=== PATIENT | female | born 1995 | race Caucasian/White ===

== ENCOUNTER 2024-03-30 14:21 | Inpatient (IN) ==
--- OUTSIDE RECORDS SUMMARY | 2024-03-30 14:41 | External Medical Summary | Continuity of Care Document ---
Author Name Unknown Organization [facility] [address] [place] [address] SHANTAL YOUNG [phone] Care Team Providers Care Rodeo Rider Name Role Phone Kandice Cody Primary Care Physician [phone] [facility] [phone] Date(s): 02/25/24 - 02/25/24 [facility] [facility] [address], [address], [address] SHANTAL [id number] [phone] Discharge Disposition: Home or Self Care Attending Physician: MD Earl Karen L Referring Physician: ADDISON Cody Katelyn Allergies, Adverse Reactions, Alerts Substance Criticality Severity Reaction Reaction Severity Status Cats Unable to assess criticality Mild Runny eye - discharging Active Latex Unable to assess criticality Severe irritation and swelling Active Allergy Not found in Search Pears Active Immunizations Given and Recorded Vaccine Date Status Refusal Reason influenza virus vaccine, inactivated 01/03/23 Give n influenza virus vaccine, inactivated 04/04/16 Give n influenza virus vaccine, inactivated 01/28/14 Breezy rded influenza virus vaccine, inactivated 08/26/11 Breezy rded pneumococcal 23-valent vaccine 08/05/20 Given pneumococcal 13-valent vaccine 02/18/20 Given human papillomavirus vaccine 1 11/20/17 Given human papillomavirus vaccine 01/28/14 Recorded human papillomavirus vaccine 08/26/11 Recorded human papillomavirus vaccine 12/22/08 Recorded tetanus toxoids-diphtheria, Td (Adult) 02/17/15 Gi terry meningococcal conjugate vaccine 08/26/11 Recorded varicella virus vaccine 12/22/08 Recorded varicella virus vaccine 12/13/02 Recorded tetanus/diphtheria/pertuss, acel (Tdap) 12/22/08 R ecorded hepatitis A pediatric vaccine 12/22/08 Recorded measles/mumps/rubella virus vaccine 07/04/02 Recor ded measles/mumps/rubella virus vaccine 01/21/98 Recor ded diphtheria/tetanus/pertuss, acel (DTaP) 06/16/02 R ecorded diphtheria/tetanus/pertuss, acel (DTaP) 06/18/97 R ecorded diphtheria/tetanus/pertuss, acel (DTaP) 96 R ecorded diphtheria/tetanus/pertuss, acel (DTaP) 96 R ecorded poliovirus vaccine, inactivated 06/16/02 Recorded poliovirus vaccine, inactivated 06/18/97 Recorded poliovirus vaccine, inactivated 96 Recorded poliovirus vaccine, inactivated 96 Recorded hepatitis B pediatric vaccine 06/29/97 Recorded hepatitis B pediatric vaccine 96 Recorded hepatitis B pediatric vaccine 96 Recorded haemophilus b conj (PRP-OMP) vaccine 06/18/97 Breezy rded haemophilus b conj (PRP-OMP) vaccine 96 Breezy rded haemophilus b conj (PRP-OMP) vaccine 96 Breezy rded 1Early/Late Reason: Accommodate D/C Medications azaTHIOprine 50 mg oral tablet Start: 09/06/23 6:28:00 PM EDT, 2 tab, PO, After dinner, Disp# 180 tab, Refills: 3, Pharmacy: [facility] Start Date: 09/06/23 Stop Date: 08/31/24 Status: Ordered cholecalciferol 1250 mcg (50,000 intl units) oral capsule Start: 02/25/24 2:56:00 PM EST, 1 cap, PO, q7days, Disp# 13 cap, Refills: 0, Pharmacy: [facility]/pharmacy#[id number] Start Date: 02/25/24 Stop Date: 05/25/24 Status: Ordered High Potency Vitamin D3 125 mcg (5000 intl units) oral capsule Start: 03/27/23 1:13:00 PM EST Start Date: 03/27/23 Status: Ordered LORazepam 1 mg oral tablet Start: 02/25/24 2:36:00 PM EST, 1 tab, PO, tid, PRN: as needed for anxiety Start Date: 02/25/24 Status: Ordered Medical Marijuana Start: 02/22/24 1:34:00 PM EST Start Date: 02/22/24 Status: Ordered multivitamin Start: 08/02/20 1:49:00 PM EDT, 1 tab, PO, Daily Start Date: 08/02/20 Status: Ordered omeprazole 20 mg oral delayed release capsule Start: 02/01/24 8:48:00 AM EDT, 1 cap, PO, Daily, Disp# 7 cap, Refills: 5, Pharmacy: [facility]/pharmacy #[id number] Start Date: 02/01/24 Stop Date: 03/14/24 Status: Ordered Renflexis 100 mg intravenous injection Start: 02/25/24 2:36:00 PM EST Start Date: 02/25/24 Status: Ordered sertraline 100 mg oral tablet Start: 08/08/23 10:37:00 AM EDT, 1 tab, PO, Daily, Disp# 30 tab, Note to Pharmacy: Total of 150 mg in a day, Pharmacy: [facility]/pharmacy #[id number] Start Date: 08/08/23 Stop Date: 09/07/23 Status: Ordered sertraline 50 mg oral tablet Start: 02/25/24 2:35:00 PM EST, 1 tab, PO, Daily Start Date: 02/25/24 Status: Ordered Problem List Condition Confirmation Course Effective Dates Status Health Status Informant Autoimmune hepatitis treated with steroids Confirmed Active Costochondritis Confirmed Active Crohn's ileocolitis Confirmed Active Elevated liver enzymes Confirmed Active pear allergy 1 Confirmed Active Generalized anxiety disorder with panic attacks Confirmed Active History of eating disorder Confirmed Active Macromastia Confirmed Active Laryngopharyngeal reflux Confirmed Active Vitamin D deficiency Confirmed Active 1PEARS Procedures Procedure Date Related Diagnosis Body Site Status Colonoscopy 1, 2, 3 01/10/24 Compl eted DILATION AND CURETTAGE 4 04/14/23 Completed Biopsy of liver 5 05/28/20 Complet ed Cholecystectomy 6 05/28/20 Complet ed Colonoscopy 02/06/20 Completed Upper GI endoscopy 02/06/20 Comple joanna Reduction mammoplasty 09/23/14 Com pleted 1- The examined portion of the ileum was normal. - Aphtha at the ileocecal valve. - Erythematous and granular mucosa in the cecum. Biopsied. - The rectum, sigmoid colon, descending colon, splenic flexure, transverse colon, hepatic flexure, ascending colon and recto-sigmoid colon are normal. 2Followup with referring doctor as needed 3Colon, cecum, biopsy: Chronic and active colitis. COMMENT: The specimen contains small fragments of colonic mucosa showing inflammatory and architectural change typically seen in primary idiopathic inflammatory bowel disease. No granulomas or dysplasia identified. The epithelium does show cytologic atypia which is interpreted as repair. 4with evacuation 5Robotic cholecystectomy and liver biopsy. 6Robotic cholecystectomy and liver biopsy. Social History Social History Type Response Tobacco Former smoker Smoking Status Never smoked cigaret radha Sex Female Sex Representation Female (finding) Patient Care team information Care Team Personnel Name: ADDISON Cody Katelyn Position: Nurse Pract - Family Med Member Role: Primary Care Provider Address: [address] [place] [id number] [place] Name: Alicia Carter Kimberly Position: Pharmacist BCMA Member Role: Pharmacy - Lifetime Address: [address] [address] [place] Name: Alicia Maria Matthew Position: Pharmacist Member Role: Pharmacy - Lifetime Care Team Related Persons Name: LEYDA OROZCO Name: ELENA DEVI
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
[2024-03-30 15:02] LABS: Basophils # (auto) 0.04 K/uL (0.00-0.20); Basophils % (auto) 0.6 %; Eosinophils % (auto) 1.5 %; Hematocrit (blood only) 43.8 % (37.0-47.0); Hemoglobin 14.8 g/dl (12.0-16.0); Immature Granulocytes # (auto) 0.01 K/uL (0.01-0.20); Immature Granulocytes % (auto) 0.2 %; Lymphocytes # (auto) 2.09 K/uL (1.20-3.40); Lymphocytes % (auto) 32.4 %; Mean Corpuscular Hgb Conc 33.8 g/dL (32.0-36.0); Mean Corpuscular Volume 91.8 fL (80.0-100.0); Monocytes # (auto) 0.92 K/uL (0.11-0.59); Monocytes % (auto) 14.2 %; Neutrophils % (auto) 51.1 %; Platelet Count 198 K/uL (130-400); RDW Coefficient of Variation 12.1 % (11.5-14.5); RDW Standard Deviation 40.7 fL (36.4-46.3); Red Blood Count 4.77 M/uL (4.20-5.40); White Blood Count 6.46 K/ul (4.8-10.8)
--- NOTE | 2024-03-30 15:05 | Emergency Department Note ---
Impression & Plan Intentional drug overdose, Autoimmune liver disease, Overdose of sertraline, Suicide attempt, Depression ED Provider Note NAME: AMRTA JOHNSON AGE: 28 SEX: F : 1995 ARRIVES VIA: Ambulance INFORMANT: Patient ED PROVIDER(S): Josué Campbell MD CHIEF COMPLAINT: Intentional overdose, suicide attempt, 302 PLAN: Disposition: Admit MEDICAL DECISION MAKING: The patient is a 28-year-old woman with past medical history of anxiety and depression on sertraline, history of Crohn's disease, autoimmune liver disease who presents to emergency department via EMS referred by police with 302 petition pending from the patient's boyfriend for intentional suicide attempt with overdose of her sertraline where she reports taking 50 of her sertraline tablets which she reports are 100 mg. The patient reports she took this all at once at 1350. Patient reports that she has a prior suicide attempt with overdose in July when she was admitted to [place] where she lives. She currently has been in the [facility] living with her boyfriend. Patient particularly for self because she does not like her life. She reports to the provider that she "does not want to be saved". She is tearful. She reports feeling nauseated and short of breath. She denies vomiting. Patient denies any other ingestions. On evaluation the patient is melancholy appearing, tearful, no acute distress, afebrile with heart in the 100s-110s and blood pressure 130/90s with respiratory rate in the mid teens and O2 saturation 100% on room air. Her pupils are 2 mm, appropriate to light and reactive. There is no ocular clonus. There is no extremity clonus. Reflexes within normal limits. EKG demonstrates sinus tachycardia without QRS widening. Case was discussed with Poison Control Center. Appreciate consultation recommendations. Recommendations are for at least 6-8 hours of observation to assess for symptomatic overdose. However given the patient is already experiencing symptoms of withdrawal with nausea will likely require admission for further monitoring for serotonin syndrome. Recommendations are for supportive care with liberal use of benzodiazepines and hydration. Agrees given the patient is having symptoms of nausea that activated charcoal is contraindicated. If symptoms were to become unresponsive to benzodiazepines with worsening symptoms including fever or seizures then cyproheptadine could be considered at that time. WBC, H/H and platelets within normal limits. Chemistry without metabolic acidosis. Electrolytes without significant abnormality. AST and ALT are mildly elevated at 46 and 62, respectively, nonspecific. Bilirubin is normal. Aspirin and salicylate acetaminophen and salicylate levels were undetectable. Medical alcohol is undetectable. COVID-19 RNA, BERTHA test was negative. Upon evaluation patient did appear more comfortable though still with heart rate in the 100s. Pupils appear slightly more dilated at this time without nystagmus or ocular clonus. Reflexes more prominent at this time and bilateral lower extremity to beats of clonus bilaterally. Given onset of symptoms of serotonin syndrome patient was given additional dose of IV Ativan. Repeat EKG is unchanged with normal QRS. Case was discussed with Dr. Linares, [facility] hospitalist, who will evaluate the patient for admission. Further management per admitting team. Triage Nursing notes reviewed and agree them. Prior/external medical records reviewed Vital Signs: reviewed Differential diagnosis: Overdose, toxicologic, infection, hypoglycemia, electrolyte abnormalities, cardiac sources, intracerebral event, neurologic, trauma, as well as other pathologies. ER treatment provided: See below. Diagnostics interpreted by me: ECG: Sinus tachycardia, 116 bpm, no ectopy, no overt ST ovation or depression, QTc 453, QRS 90. Cardiac Monitoring: An order for continuous cardiac monitoring was placed and demonstrated Sinus tachycardia, 116 bpm, no ectopy Laboratory studies: See below Imaging studies: See below Consultation(s): Poison control center Dr. Linares [facility] hospitalist. HPI: The patient is a 28-year-old woman with past medical history of anxiety and depression on sertraline, history of Crohn's disease, autoimmune liver disease who presents to emergency department via EMS referred by police with 302 petition pending from the patient's boyfriend for intentional suicide attempt with overdose of her sertraline where she reports taking 50 of her sertraline tablets which she reports are 100 mg. The patient reports she took this all at once at 1350. Patient reports that she has a prior suicide attempt with overdose in July when she was admitted to [place] where she lives. She currently has been in the [facility] living with her boyfriend. Patient particularly for self because she does not like her life. She reports to the provider that she "does not want to be saved". She is tearful. She reports feeling nauseated and short of breath. She denies vomiting. Patient denies any other ingestions. ROS: See above HPI for pertinent positives & negatives. A total of 10 systems reviewed and were otherwise negative. VITALS:See Below PHYSICAL EXAMINATION: GENERAL: Awake, alert, melancholy-appearing, in no distress HENT: Normocephalic, atraumatic. Oropharynx with dry mucous membranes and otherwise unremarkable. EYES: Normal conjunctiva. Sclera non-icteric. NECK: Supple. No nuchal rigidity. FROM. No JVD. RESPIRATORY: Clear to auscultation. CARDIAC: Tachycardic rate, normal rhythm. Extremities warm and well perfused. Pulses equal. ABDOMEN: Soft, non-distended. No tenderness to palpation. No rebound or guarding. No masses. MUSCULOSKELETAL: Chest examination reveals no tenderness. The back is symmetrical on inspection without obvious abnormality. There is no CVA tenderness to palpation. No joint edema. LOWER EXTREMITIES: Calves are equal size bilaterally and non-tender. No edema. No discoloration. NEURO: Normal sensorium. No sensory or motor deficits noted. SKIN: No rash or jaundice noted. PSYCH: Reports depression, suicide attempt persistent suicidal ideation. ED COURSE: Critical Care: I have personally spent greater than 35 minutes of critical care time in the direct management of this patient. This includes bedside care, interpretation of diagnostic studies, and testing, discussion with consultants, patient, and family members, and other required patient management activities. This 35 minutes is in excess of all separately billable procedures. Jousé Campbell MD Past Med/Surg History Problem List (Updated 03/31/24 @ 03:28 by Josué Campbell MD) Intentional SSRI (selective serotonin reuptake inhibitor) overdose Depression (Acute) Suicide attempt (Acute) Crohn's disease Autoimmune liver disease (Acute) Suicidal overdose Overdose of sertraline (Acute) Intentional drug overdose (Acute) Medical History History of Crohn's disease Social History Smoking Status: Never smoker Hx Alcohol Use: No Hx Substance Use: Yes Last Used Substance Other:: weeks ago Preferred Language: Togolese Communication Ability: Effective Angle Furnaceman Required: No Beliefs That Will Affect Care: None Current Living Situation: Significant Other Feels Safe at Home: Yes Assistive Devices: None Allergies Allergies Allergy/AdvReac Type Severity Reaction Status Date / Time latex Allergy Rash Verified 12/15/24 17:07 Home Meds Home Medications Medication Instructions Recorded Confirmed azathioprine 50 mg tablet 100 mg PO HS liver disease 02/13/24 03/30/24 infliximab-abda 100 mg intravenous 100 mg IV .EVERY 6 WEEKS crohns 02/13/24 03/30/24 solution (Renflexis) sertraline 100 mg tablet 100 mg PO QAM anxiety 02/13/24 03/30/24 cholecalciferol (vitamin D3) 1,250 1,250 mcg PO WK 03/30/24 03/30/24 mcg (50,000 unit) capsule sertraline 50 mg tablet 50 mg PO QAM 03/30/24 03/30/24 Results & Data (ED) Vital Signs Vital Signs - 24 hr 03/30/24 14:25 03/30/24 14:25 03/30/24 14:43 Temperature 36.7 C Temperature Source Oral Pulse Rate 100 H 112 H Pulse Rate [Right Finger] Pulse Rhythm [Right Finger] Pulse Strength [Right Finger] Respiratory Rate 16 Respiratory Effort / Characteristics Non-Labored Spontaneous Respiratory Depth Normal Respiratory Pattern Regular Blood Pressure 133/97 Blood Pressure [Right Arm] Blood Pressure Mean 109 Blood Pressure Mean [Right Arm] Blood Pressure Position [Right Arm] Pulse Oximetry 100 100 Oxygen Delivery Method Room Air Room Air Oxygen Flow Rate 0 Sepsis Recent Fever Within 48 Hours No Sepsis New/Unexplained Change in Mental Status N/A Sepsis Action Taken by Nursing No Action Required 03/30/24 15:28 03/30/24 17:00 Temperature Temperature Source Pulse Rate Pulse Rate [Right Finger] 96 H 103 H Pulse Rhythm [Right Finger] Regular Regular Pulse Strength [Right Finger] Normal Normal Respiratory Rate 16 17 Respiratory Effort / Characteristics Non-Labored Non-Labored Respiratory Depth Normal Normal Respiratory Pattern Regular Regular Blood Pressure Blood Pressure [Right Arm] 121/79 117/77 Blood Pressure Mean Blood Pressure Mean [Right Arm] 93 90 Blood Pressure Position [Right Arm] Lying Lying Pulse Oximetry 99 96 Oxygen Delivery Method Room Air Room Air Oxygen Flow Rate Sepsis Recent Fever Within 48 Hours Sepsis New/Unexplained Change in Mental Status Sepsis Action Taken by Nursing Laboratory Data Attestation: I reviewed the patient's lab results. 03/30/24 14:38 03/31/24 00:39 Lab Results 03/30/24 03/30/24 Range/Units 14:38 14:46 WBC 6.46 (4.8-10.8) K/ul RBC 4.77 (4.20-5.40) M/uL Hgb 14.8 (12.0-16.0) g/dl Hct 43.8 (37.0-47.0) % MCV 91.8 (80.0-100.0) fL MCH 31.0 (25.0-34.0) pg MCHC 33.8 (32.0-36.0) g/dL RDW Std Deviation 40.7 (36.4-46.3) fL RDW Coeff of Gema 12.1 (11.5-14.5) % Plt Count 198 (130-400) K/uL MPV 11.0 (9.4-12.4) fL Immature Gran % (Auto) 0.2 % Neut % (Auto) 51.1 % Lymph % (Auto) 32.4 % [place] % (Auto) 14.2 % Eos % (Auto) 1.5 % Baso % (Auto) 0.6 % Neut # (Auto) 3.30 (1.40-6.50) K/uL Lymph # (Auto) 2.09 (1.20-3.40) K/uL [place] # (Auto) 0.92 H (0.11-0.59) K/uL Eos # (Auto) 0.10 (0.00-0.50) K/uL Baso # (Auto) 0.04 (0.00-0.20) K/uL Immature Gran # (Auto) 0.01 (0.01-0.20) K/uL Sodium 135 L (136-145) mmol/L Potassium TNP Chloride 104 (98-107) mmol/L Carbon Dioxide 24 (21-32) mmol/L Anion Gap 7 (3-11) BUN 7 (6-23) mg/dl Creatinine 0.58 L (0.6-1.2) mg/dl Est Cr Clr Drug Dosing 136.4 ml/min eGFR 127.12 BUN/Creatinine Ratio 12.1 (10-20) Glucose 80 (70-99(Fasting)) mg/dl Calcium 9.7 (8.6-10.3) mg/dl Phosphorus 2.7 (2.5-4.9) mg/dl Magnesium 2.1 (1.7-2.4) mg/dl Total Bilirubin 0.6 (0.2-1.0) mg/dl AST TNP ALT 62 H (7-52) U/L Alkaline Phosphatase 166 H (34-104) U/L Total Protein 8.5 H (6.0-8.3) gm/dl Albumin 4.6 (3.4-5.0) gm/dl Globulin 3.9 (2.5-4.0) gm/dl Albumin/Globulin Ratio 1.2 (0.9-2) TSH 3.144 (0.300-4.500) uIu/ml HCG, Qual Negative (Negative) Salicylates < 3.0 L (3.0-30) mg/dl Acetaminophen < 3 L (10-30) ug/ml Ethyl Alcohol mg/dL < 10.0 (<10.0) mg/dl SARS-CoV-2, RNA, NAAT NEGATIVE (NEGATIVE) Administered Medications Parenteral Electrolytes (Plasma-Lyte A Ph 7.4) 1,000 mls @ 125 mls/hr IV .Q8H SHLOMO Stop: 03/31/24 20:44 Last Admin: 03/30/24 20:51 Dose: 125 mls/hr Documented By: [id number] Lorazepam (Lorazepam 2 Mg/1 Ml Vial) 1 mg IV Q2H PRN PRN Reason: Anxiety/Agitation Stop: 04/29/24 23:58 Last Admin: 03/31/24 02:08 Dose: 1 mg Documented By: [id number] Admin: 03/31/24 00:16 Dose: 1 mg Documented By: [id number] Miscellaneous (Icu Protocol For Hyperglycemia) 1 each N/A ACHS [facility] Stop: 04/01/24 20:59 Last Admin: 03/30/24 21:00 Dose: Not Given Documented By: [id number] Discontinued Medications Sodium Chloride (Nss) 1,000 mls @ 999 mls/hr IV .Q1H1M ONE Stop: 03/30/24 15:36 Last Infusion: 03/30/24 16:08 Dose: Infused Documented By: [email or web address] Admin: 03/30/24 15:06 Dose: 999 mls/hr Documented By: [id number] Sodium Chloride (Nss) 1,000 mls @ 125 mls/hr IV .Q8H SHLOMO Stop: 03/31/24 17:44 Last Infusion: 03/30/24 20:52 Dose: Infused Documented By: [id number] Admin: 03/30/24 17:55 Dose: 125 mls/hr Documented By: SHJustina Potassium Chloride (K [place] / Wtr) 10 meq in 100 mls @ 100 mls/hr IV Q1H SHLOMO Stop: 03/31/24 01:29 Last Infusion: 03/31/24 02:00 Dose: Infused Documented By: [id number] Admin: 03/31/24 01:00 Dose: 100 mls/hr Documented By: [id number] Infusion: 03/31/24 01:00 Dose: Infused Documented By: [id number] Admin: 03/31/24 00:03 Dose: 100 mls/hr Documented By: [id number] Magnesium Sulfate/Dextrose (Magnesium Sulfate / D5w) 1 gm in 100 mls @ 50 mls/hr IV ONE ONE Stop: 03/31/24 01:20 Last Infusion: 03/31/24 02:03 Dose: Infused Documented By: [id number] Admin: 03/31/24 00:02 Dose: 50 mls/hr Documented By: [id number] Lorazepam (Lorazepam 1 Mg/1 Ml Syr Ed Inj Use) 1 mg IV ONE STA Stop: 03/30/24 15:23 Last Admin: 03/30/24 15:31 Dose: 1 mg Documented By: ANNIE Lorazepam (Lorazepam 1 Mg/1 Ml Syr Ed Inj Use) 1 mg IV ONE STA Stop: 03/30/24 17:02 Last Admin: 03/30/24 17:24 Dose: 1 mg Documented By: ANNIE Ondansetron HCl (Ondansetron Inj 2 Mg/Ml 2 Ml Vial) 4 mg IV NOW STA Stop: 03/30/24 15:23 Last Admin: 03/30/24 15:31 Dose: 4 mg Documented By: ANNIE Potassium Chloride (Potassium Chloride 20 Meq/15 Ml Udc) 40 meq PO NOW STA Stop: 03/30/24 23:22 Last Admin: 03/31/24 00:02 Dose: 40 meq Documented By: [id number] Discharge Plan Visit Data Chief Complaint: Overdose (Intentional) ED Provider: Josué Campbell Discharge Problem: Intentional drug overdose, Autoimmune liver disease, Overdose of sertraline, Suicide attempt, Depression Patient Disposition: Admitted As Inpatient Discharge Instructions Interventions: ED Discharge Assessment Last Done: 03/30/24 19:11 Discharge Problem: Intentional drug overdose Qualifiers: Encounter type: initial encounter Qualified Code(s): T50.902A - Poisoning by unspecified drugs, medicaments and biological substances, intentional self-harm, initial encounter Depression Qualifiers: Depression Type: unspecified Qualified Code(s): F32.A - Depression, unspecified
[2024-03-30] MEDS: SODIUM CHLORIDE 0.9% 1,000 ML IV ONE (15:06)
[2024-03-30 15:09] LABS: Pregnancy Test, Serum Negative (Negative)
[2024-03-30 15:13] LABS: Acetaminophen < 3 ug/ml (10-30); Salicylate < 3.0 mg/dl (3.0-30)
[2024-03-30 15:14] LABS: Alanine Aminotransferase 62 U/L (7-52); Albumin Globulin Ratio 1.2 (0.9-2); Albumin Level 4.6 gm/dl (3.4-5.0); Alkaline Phosphatase 166 U/L (34-104); Anion Gap 7 (3-11); BUN Creatinine Ratio 12.1 (10-20); Bilirubin,Total 0.6 mg/dl (0.2-1.0); Blood Urea Nitrogen 7 mg/dl (6-23); Calcium 9.7 mg/dl (8.6-10.3); Carbon Dioxide 24 mmol/L (21-32); Chloride 104 mmol/L (98-107); Creatinine Clr Calc Pharmacy 136.4 ml/min; Globulin 3.9 gm/dl (2.5-4.0); Glucose 80 mg/dl (70-99(Fasting)); Magnesium 2.1 mg/dl (1.7-2.4); Phosphorus 2.7 mg/dl (2.5-4.9); Sodium 135 mmol/L (136-145); Total Protein 8.5 gm/dl (6.0-8.3)
[2024-03-30 15:27] LABS: Thyroid Stimulating Hormone 3.144 uIu/ml (0.300-4.500)
[2024-03-30] MEDS: LORazepam 1 MG/1 ML SYR ED Inj Use IV STA ×2 (15:31→17:24)
[2024-03-30] MEDS: ONDANSETRON INJ 2 MG/ML 2 ML VIAL IV STA (15:31)
[2024-03-30 16:47] LABS: Appearance Urine Cloudy (Clear); Bacteria Urine Automated None Seen (None Seen); Bilirubin Urine Negative (Negative); Blood Urine 3+ (Negative); Cast Urine Automated 0-2 /lpf (0-2); Color Urine Yellow; Epithelial Cell Urine Auto 0-2 /hpf (0-2); Glucose Urine UA Negative (Negative); Ketones Urine Negative (Negative); Leukocyte Esterase Urine Negative (Negative); Nitrite Urine Negative (Negative); Protein Urine Negative (Negative); RBC Urine Automated >20 /hpf (0-2); Specific Gravity Urine 1.019 (1.000-1.030); Urobilinogen Urine Negative (Negative); WBC Urine Automated 0-5 /hpf (0-5)
[2024-03-30 17:04] LABS: Amphetamines+Metham, Urine Neg (Neg); Barbiturates, Urine Neg (Neg); Benzodiazepine, Urine Pos (Neg); Cocaine, Urine Neg (Neg); Fentanyl, Urine Neg (Neg); MDMA (Ecstacy), Urine Neg (Neg); Marijuana, Urine Neg (Neg); Methadone, Urine Neg (Neg); Opiate, Urine Neg (Neg); Phencyclidine, Urine Neg (Neg)
--- NOTE | 2024-03-30 17:47 | History & Physical Report ---
Date of Service March 30, 2024 Assessment & Plan (1) Intentional drug overdose: (2) Overdose of sertraline: (3) Suicidal overdose: (4) Autoimmune liver disease: (5) Crohn's disease: Plan 28-year-old female with past medical history of depression with prior suicide attempt in July 2023 on sertraline, autoimmune liver disease on azathioprine, Crohn's disease on infliximab infusions every 6 weeks follows up at IBD clinic with [facility] was brought in by EMS to ED after being referred by police with a 302 petition from the patient's boyfriend for suicide attempt with sertraline overdose. #Suicide attempt #Intentional drug overdose with sertraline Admit to ICU Telemetry monitoring Professor Computer Science consult: Message sent to Dr. Arvizu via secure chat Close observation for seizures, clonus and encephalopathy Patient has received 2 doses of IV benzodiazepine in ED Dr. Campbell from ED spoke with poison control: Advice was to hold off on activated charcoal as patient was nauseous requiring Zofran and benzodiazepine as needed for clonus and close observation One-to-one observation Psychiatry consult N.p.o. for now IV fluids: Normal saline at 125 mL/h x 24 hours Monitor QTc Check K and magnesium and replace as needed Seizure precautions Monitor LFTs #Autoimmune liver disease #Mild transaminitis #Crohn's disease Patient follows up with GI at [facility] and IBD center at [facility] Hold azathioprine for now Patient is on 6 weekly infusions of infliximab Monitor LFTs CODE STATUS: Full code by default DVT prophylaxis: Bilateral SCDs Care plan discussed with ED attending Dr. Campbell, patient and nursing staff History of Present Illness Chief Complaint: Suicide attempt: Intentional drug overdose with sertraline Primary Care Provider: ADDISON Turner 28-year-old female with past medical history of depression with prior suicide attempt in July 2023 on sertraline, autoimmune liver disease on azathioprine, Crohn's disease on infliximab infusions every 6 weeks follows up at IBD clinic with [facility] was brought in by EMS to ED after being referred by police with a 302 petition from the patient's boyfriend for suicide attempt with sertraline overdose. Patient states she took 40 tablets of sertraline (100 mg tablets) around 2 PM. Patient states her boyfriend broke up with her today and she cannot imagine her life without him and she was feeling depressed and suicidal and does not wish to live. Patient tells me she has had a prior suicide attempt with sertraline in July 2023 where she was admitted to [facility] and situation was similar where her boyfriend broke up with her. Patient denies any headache, dizziness, lightheadedness. Feels her head is heavy from IV Ativan. She was feeling nauseous but feels better after IV Ativan. She denies any vomiting, diarrhea, abdominal pain, chest pain, shortness of breath, cough, fever, chills, urinary symptoms In ED: Patient was given 1 L of normal saline bolus, 2 doses of Ativan 1 mg IV for clonus and Zofran 4 mg IV. She had an EKG with initially showed a QTc of 453 and a repeat EKG showed a QTc of 459. ED attending Dr. Campbell spoke with poison control who advised against activated charcoal because of nausea and recommended IV benzodiazepines for clonus or any seizures and for close observation. Patient will be admitted to ICU for close observation Labs reviewed, EKG reviewed Social history: Patient denies tobacco use, alcohol use and denies any illegal or IV drug use. She used to live in [facility] and moved to [place] to live with her boyfriend almost a year ago Allergies Allergy/AdvReac Type Severity Reaction Status Date / Time latex Allergy Rash Verified 03/30/24 17:07 Home Medications Medication Instructions Recorded Confirmed Type azathioprine 50 mg tablet 100 mg PO HS liver disease 02/13/24 03/30/24 History infliximab-abda 100 mg intravenous 100 mg IV .EVERY 6 WEEKS crohns 02/13/24 03/30/24 History solution (Renflexis) sertraline 100 mg tablet 100 mg PO QAM anxiety 02/13/24 03/30/24 History cholecalciferol (vitamin D3) 1,250 1,250 mcg PO WK 03/30/24 03/30/24 History mcg (50,000 unit) capsule sertraline 50 mg tablet 50 mg PO QAM 03/30/24 03/30/24 History Past Med/Surg History Problem List (Updated 03/30/24 @ 17:59 by Larry Linares MD) Crohn's disease Autoimmune liver disease Suicidal overdose Overdose of sertraline Intentional drug overdose Medical History History of Crohn's disease Social History Smoking Status: Never smoker Hx Substance Use: Yes Preferred Language: [place]er Feels Safe at Home: Yes Review of Systems Review of Systems: All 12 point systems having reviewed and are either negative or listed in HPI Physical Exam Physical Exam: General: No acute distress Psych: Awake and alert, oriented to place person and time HEENT: Anicteric sclera, moist oral mucosa CVS: Tachycardic Lungs: Bilateral air entry, no wheezing noted Abdomen: Soft, nontender, no rebound, no guarding Ext: No lower extremity edema, no calf tenderness Neuro: No focal motor deficits noted, able to move all 4 extremities Results & Data Results & Data Vital Signs (Past 12 Hours) Vital Signs Temp Pulse Pulse Resp BP BP Pulse Ox 03/30/24 17:00 103 H 17 117/77 96 03/30/24 15:28 96 H 16 121/79 99 03/30/24 14:43 112 H 03/30/24 14:25 100 03/30/24 14:25 36.7 C 100 H 16 133/97 100 O2 Del Method O2 Flow Rate 03/30/24 17:00 Room Air 03/30/24 15:28 Room Air 03/30/24 14:43 03/30/24 14:25 Room Air 0 03/30/24 14:25 Room Air Laboratory Results Laboratory Results - last 24 hr 03/30/24 03/30/24 03/30/24 14:38 14:46 Unknown WBC 6.46 RBC 4.77 Hgb 14.8 Hct 43.8 MCV 91.8 MCH 31.0 MCHC 33.8 RDW Std Deviation 40.7 RDW Coeff of Gema 12.1 Plt Count 198 MPV 11.0 Immature Gran % (Auto) 0.2 Neut % (Auto) 51.1 Lymph % (Auto) 32.4 [place] % (Auto) 14.2 Eos % (Auto) 1.5 Baso % (Auto) 0.6 Neut # (Auto) 3.30 Lymph # (Auto) 2.09 [place] # (Auto) 0.92 H Eos # (Auto) 0.10 Baso # (Auto) 0.04 Immature Gran # (Auto) 0.01 Sodium 135 L Potassium TNP Chloride 104 Carbon Dioxide 24 Anion Gap 7 BUN 7 Creatinine 0.58 L Est Cr Clr Drug Dosing 136.4 eGFR 127.12 BUN/Creatinine Ratio 12.1 Glucose 80 Calcium 9.7 Phosphorus 2.7 Magnesium 2.1 Total Bilirubin 0.6 AST TNP ALT 62 H Alkaline Phosphatase 166 H Total Protein 8.5 H Albumin 4.6 Globulin 3.9 Albumin/Globulin Ratio 1.2 TSH 3.144 HCG, Qual Negative Urine Color Yellow Urine Appearance Cloudy A Urine pH 5.0 Ur Specific [place] 1.019 Urine Protein Negative Urine Glucose (UA) Negative Urine Ketones Negative Urine Blood 3+ H Urine Nitrite Negative Urine Bilirubin Negative Urine Urobilinogen Negative Ur Leukocyte Esterase Negative Urine WBC (Auto) 0-5 Urine RBC (Auto) >20 H U Hyaline Cast (Auto) 0-2 U Epithel Cells (Auto) 0-2 Urine Bacteria (Auto) None Seen Salicylates < 3.0 L Urine Opiates Screen Neg Ur Methadone, Qual Neg Urine Fentanyl Screen Neg Acetaminophen < 3 L Urine Barbiturates Neg Ur Phencyclidine (PCP) Neg U Amphetamin/Meth Scrn Neg MDMA (Ecstasy) Screen Neg U OH-Alprazolam Confrm Pending U Benzodiazepines Scrn Pos H 7-[place]mino Clonazepam Pending Ur Nordiazepam Confirm Pending U OH-ethylflurazepam Pending U Lorazepam Cnf GC/MS Pending U Oxazepam Confm GC/MS Pending Ur Temazepam Confirm Pending U OH-Triazolam Confirm Pending U OH-Midazolam Confirm Pending Ur Cocaine Metabolite Neg U Marijuana (THC) Screen Neg Drug Screen Comment Pending Ethyl Alcohol mg/dL < 10.0 SARS-CoV-2, RNA, NAAT NEGATIVE ECG Additional Comments: Sinus tachycardia with QTc of 459 PG Care Time/CCT Total # of Minutes Spent Total Time Spent with Patient: Total time spent is greater than 50% in coordination of care (as documented) at patient's floor/unit and/or counseling patient: Coding Level of Care Code 48556 INT INP/OBS CARE 3/75MIN Diagnoses Intentional drug overdose T50.902A Overdose of sertraline T43.221A Suicidal overdose T50.902A Autoimmune liver disease K76.89 Crohn's disease K50.90
[2024-03-30] MEDS: SODIUM CHLORIDE 0.9% 1,000 ML IV SCH (17:55)
[2024-03-30 18:44] LABS: Magnesium 1.8 mg/dl (1.7-2.4); Potassium 3.6 mmol/L (3.5-5.1)
--- NOTE | 2024-03-30 20:29 | Critical Care Consultation ---
Date of Consultation March 30, 2024 Assessment & Plan (1) Suicide attempt: 28-year-old female with past medical history significant for anxiety and depression, Crohn's disease, autoimmune liver disease and suicide attempt in July of this year, now presents to the ICU following sertraline overdose in which patient claims to have taken 40, 100 mg tablets of her prescribed Sertraline - UDS positive for benzos. Acetaminophen and salicylates negative - Poison control consulted, appreciate recommendations - Obtain routine EKGs. Thus far QTc within normal limits - Ativan as needed -Maximize electrolytes, Monitor routine BMPs -Continue with IV fluid resuscitation -Seizure precautions - Continuous monitoring on telemetry in ICU for now -Psych consult once stable. Suicide precautions. Patient currently 302 per report (2) Overdose of sertraline: As above (3) Autoimmune liver disease: Monitor LFTs Continue azathioprine when appropriate (4) Crohn's disease: Takes Renflexis injections every 6 weeks. - Patient does report subjective abdominal pain which is generalized throughout the abdomen on exam. Otherwise unremarkable abdominal exam -Will obtain KUB History of Present Illness Attending Physician: Larry Linares MD History of Present Illness 28-year-old female with past medical history of anxiety and depression, autoimmune disorder, Crohn's disease, and suicide attempt in July 2023. She presented to the emergency department earlier this evening after intentional overdose with her prescription for sertraline. Patient states that she took 40, 100 mg sertraline in an attempt to end her life. Patient states that she recently ended her relationship with her boyfriend, and has struggled with depression for several years with feelings of inadequacy and worthlessness due to her chronic illness. She currently denies further suicidal ideation. She does complain of headache, abdominal pain, Shortness of breath and cramping. She denies dizziness, syncopal episodes, Recent illness or fevers, sore throat, cough or congestion, chest pain, nausea or vomiting or diarrhea. EKGs with normal QTc thus far. On exam she does display signs of clonus and dilated pupils. She appears to be alert and oriented x 3, Mildly anxious but otherwise hemodynamically stable without acute distress. Patient to remain in ICU for close observation at this time. Allergies Allergy/AdvReac Type Severity Reaction Status Date / Time latex Allergy Rash Verified 03/30/24 17:07 Home Medications Medication Instructions Recorded Confirmed Type azathioprine 50 mg tablet 100 mg PO HS liver disease 10/30/24 12/15/24 History infliximab-abda 100 mg intravenous 100 mg IV .EVERY 6 WEEKS crohns 02/13/24 03/30/24 History solution (Renflexis) sertraline 100 mg tablet 100 mg PO QAM anxiety 02/13/24 03/30/24 History cholecalciferol (vitamin D3) 1,250 1,250 mcg PO WK 03/30/24 03/30/24 History mcg (50,000 unit) capsule sertraline 50 mg tablet 50 mg PO QAM 03/30/24 03/30/24 History Patient History Medical History History of Crohn's disease Social History Smoking Status: Never smoker Hx Alcohol Use: No Hx Substance Use: Yes Last Used Substance Other:: weeks ago Preferred Language: Chinese Communication Ability: Effective 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 No nystagmus. EOMs intact ENMT: external ear and nose normal, oropharynx normal Neck: trachea midline, no thyromegaly Respiratory: normal respiratory effort, lungs clear to auscultation Cardiovascular: Rate/Rhythm: + tachycardic Heart Sounds: normal S1 and normal S2; no murmur Extremities: no edema Gastrointestinal (Abdomen): Abdomen soft, tender with palpation, bowel sounds auscultated all 4 quadrants Musculoskeletal: Positive clonus in bilateral lower extremities on exam. Musculoskeletal system without deformity, normal strength Skin: no rashes, warm and dry Neurologic: PERRL, EOMI, accommodation nl, no face palsy, no dysarthria Speech / Cognition: normal speech Motor/Sensory: normal movement Psychiatric: Orientation: oriented x 3 and cooperative Affect: + anxious affect Results & Data Results & Data Vital Signs (Past 12 Hours) Vital Signs Temp Pulse Pulse Pulse Resp BP BP 03/30/24 19:30 36.9 C 125 H 24 120/70 03/30/24 19:00 113 H 16 12/15/24 18:15 110 H 03/30/24 17:48 116 H 19 03/30/24 17:48 112 H 03/30/24 17:00 103 H 17 03/30/24 15:28 96 H 16 03/30/24 14:43 112 H 03/30/24 14:25 03/30/24 14:25 36.7 C 100 H 16 133/97 BP Pulse Ox O2 Del Method O2 Flow Rate 03/30/24 19:30 99 Room Air 03/30/24 19:00 127/87 98 Room Air 03/30/24 18:15 03/30/24 17:48 119/74 96 Room Air 03/30/24 17:48 96 Room Air 03/30/24 17:00 117/77 96 Room Air 03/30/24 15:28 121/79 99 Room Air 03/30/24 14:43 03/30/24 14:25 100 Room Air 0 03/30/24 14:25 100 Room Air Coding Level of Care Code 83216 IN/OBS CONSULT LVL 2,35M Diagnoses Suicide attempt T14.91XA Overdose of sertraline T43.221A Autoimmune liver disease K76.89 Crohn's disease K50.90 Time Spent (min) 43
[2024-03-30] MEDS ORDERED: INFLUENZA VACC TS2024-25(6m+)/PF (IIV3) 0.5mL Syr IM ONE (20:37)
[2024-03-30] MEDS: PLASMA-LYTE A 1,000 ML IV SCH (20:51)
[2024-03-30] MEDS: ICU Protocol for HYPERglycemia SCH (21:00)
[2024-03-30 22:03] LABS: Calcium 8.2 mg/dl (8.6-10.3); Creatinine Clr Calc Pharmacy 138.8 ml/min; Magnesium 1.9 mg/dl (1.7-2.4); Potassium 3.3 mmol/L (3.5-5.1)
[2024-03-31] MEDS: POTASSIUM CHLORIDE 20 MEQ/15 ML UDC PO STA ×2 (00:02→09:51)
[2024-03-31] MEDS: MAGNESIUM SULFATE / D5W 1 GM/100 ML BAG IV ONE (00:02)
[2024-03-31] MEDS: POTASSIUM CHLORIDE / WTR 10 MEQ/100 ML PLCT IV SCH (00:03)
[2024-03-31] MEDS: LORazepam 2 MG/1 ML VIAL IV PRN (00:16)
[2024-03-31 01:19] LABS: BUN Creatinine Ratio 13.6 (10-20); Calcium 8.5 mg/dl (8.6-10.3); Creatinine Clr Calc Pharmacy 134.1 ml/min; Magnesium 1.9 mg/dl (1.7-2.4); Potassium 3.8 mmol/L (3.5-5.1)
[2024-03-31 04:42] LABS: Pregnancy Test, Urine Negative (Negative)
[2024-03-31 05:32] LABS: Albumin Globulin Ratio 1.2 (0.9-2); Albumin Level 3.8 gm/dl (3.4-5.0); BUN Creatinine Ratio 11.5 (10-20); Bilirubin,Total 0.7 mg/dl (0.2-1.0); Calcium 8.4 mg/dl (8.6-10.3); Creatinine Clr Calc Pharmacy 129.7 ml/min; Globulin 3.2 gm/dl (2.5-4.0); Magnesium 2.1 mg/dl (1.7-2.4)
[2024-03-31 06:38] LABS: Hematocrit (blood only) 35.7 % (37.0-47.0); Hemoglobin 12.2 g/dl (12.0-16.0); Mean Corpuscular Hemoglobin 31.4 pg (25.0-34.0); Mean Corpuscular Hgb Conc 34.2 g/dL (32.0-36.0); Mean Platelet Volume 11.1 fL (9.4-12.4); Platelet Count 170 K/uL (130-400); RDW Coefficient of Variation 12.2 % (11.5-14.5); RDW Standard Deviation 41.1 fL (36.4-46.3); Red Blood Count 3.88 M/uL (4.20-5.40)
--- NOTE | 2024-03-31 07:29 | Critical Care Progress Note ---
Date of Service March 31, 2024 Assessment & Plan (1) Intentional SSRI (selective serotonin reuptake inhibitor) overdose: (2) Suicide attempt: Plan Impression: 28-year-old female admitted to the ICU post intentional SSRI overdose as a suicide attempt. She has been hemodynamically stable. She had significant issues with visual hallucinations overnight. Clonus appears resolving. She remains mildly tachycardic. Recommendation: 1. SSRI overdose: Continue supportive care. Judicious benzodiazepines as needed. Daily EKG. 2. Pending behavioral health consultation. Continue med hold for now. 3. Okay to advance diet as tolerated. 4. Transaminitis and alk phos returning back to normal. Patient's critical care issues have resolved. She can transfer out of the ICU to telemetry on the medical service. Critical care will sign off. Feel free to contact us with questions or concerns Admission and Anticipated Discharge Date Admission Date: March 30, 2024 Subjective Patient seen and examined. EMR reviewed. Discussed with overnight critical care NERY. Discussed with bedside critical care nurse and on multidisciplinary rounds. Patient offers no complaints this morning. She is hungry and wants to eat. She is having some residual diarrhea but no abdominal pain. No nausea or vomiting. No chest pain palpitations. She is having some persistent visual hallucinations. Review of Systems Review of Systems: All systems reviewed & are unremarkable except as noted in HPI & below Physical Exam Constitutional: WD/WN, vitals as above Neck: trachea midline, no thyromegaly Respiratory: normal respiratory effort, lungs clear to auscultation Cardiovascular: RRR, no murmur, no edema Gastrointestinal (Abdomen): normal bowel sounds, soft, nontender, no hepatosplenomegaly Musculoskeletal: Extremities: extremities normal to inspection Skin: no rashes, warm and dry Neurologic: Nonfocal exam Lymphatic: no cervical lymphadenopathy Results & Data Results & Data Vital Signs (Past 12 Hours) Vital Signs Temp Pulse Pulse Resp BP BP Pulse Ox 03/31/24 06:00 116 H 19 121/76 100 03/31/24 05:00 115 H 12 130/81 100 03/31/24 04:00 36.9 C 121 H 14 129/89 98 03/31/24 03:00 110 H 16 131/73 98 03/31/24 02:00 36.5 C 118 H 16 133/83 99 03/31/24 00:00 125 H 03/31/24 00:00 36.7 C 120 H 24 132/87 98 03/30/24 23:00 36.8 C 110 H 16 136/80 98 03/30/24 22:00 112 H 22 127/82 98 03/30/24 21:00 116 H 24 102/82 98 03/30/24 20:00 120 H 18 116/69 98 03/30/24 19:41 117 H 03/30/24 19:30 36.9 C 123 H 16 120/70 98 03/30/24 19:30 36.9 C 125 H 24 120/70 99 O2 Del Method 03/31/24 06:00 Room Air 03/31/24 05:00 Room Air 03/31/24 04:00 Room Air 03/31/24 03:00 Room Air 03/31/24 02:00 Room Air 03/31/24 00:00 03/31/24 00:00 Room Air 03/30/24 23:00 Room Air 03/30/24 22:00 Room Air 03/30/24 21:00 Room Air 03/30/24 20:00 Room Air 03/30/24 19:41 03/30/24 19:30 Room Air 03/30/24 19:30 Room Air Critical Care Results & Data Vital Signs (Past 12 Hours) Vital Signs Temp Pulse Pulse Resp BP BP Pulse Ox 03/31/24 06:00 116 H 19 121/76 100 03/31/24 05:00 115 H 12 130/81 100 03/31/24 04:00 36.9 C 121 H 14 129/89 98 03/31/24 03:00 110 H 16 131/73 98 03/31/24 02:00 36.5 C 118 H 16 133/83 99 03/31/24 00:00 125 H 03/31/24 00:00 36.7 C 120 H 24 132/87 98 03/30/24 23:00 36.8 C 110 H 16 136/80 98 03/30/24 22:00 112 H 22 127/82 98 03/30/24 21:00 116 H 24 102/82 98 03/30/24 20:00 120 H 18 116/69 98 03/30/24 19:41 117 H O2 Del Method 03/31/24 06:00 Room Air 03/31/24 05:00 Room Air 03/31/24 04:00 Room Air 03/31/24 03:00 Room Air 03/31/24 02:00 Room Air 03/31/24 00:00 03/31/24 00:00 Room Air 03/30/24 23:00 Room Air 03/30/24 22:00 Room Air 03/30/24 21:00 Room Air 03/30/24 20:00 Room Air 03/30/24 19:41 Lab & Micro Results (Past 24 Hours) RBC 3.88 M/uL (4.20-5.40) L 03/31/24 WBC 6.90 K/ul (4.8-10.8) 03/31/24 Hgb 12.2 g/dl (12.0-16.0) 03/31/24 Hct 35.7 % (37.0-47.0) L 03/31/24 MCV 92.0 fL (80.0-100.0) 03/31/24 MCH 31.4 pg (25.0-34.0) 03/31/24 MCHC 34.2 g/dL (32.0-36.0) 03/31/24 RDW Standard Deviation 41.1 fL (36.4-46.3) 03/31/24 RDW Coefficient of Variation 12.2 % (11.5-14.5) 03/31/24 Plt Count 170 K/uL (130-400) 03/31/24 MPV 11.1 fL (9.4-12.4) 03/31/24 Neutrophils (%) (Auto) 51.1 % 03/30/24 Lymphocytes (%) (Auto) 32.4 % 03/30/24 Monocytes # (Auto) 0.92 K/uL (0.11-0.59) H 03/30/24 Eosinophils # (Auto) 0.10 K/uL (0.00-0.50) 03/30/24 Immature Granulocyte % (Auto) 0.2 % 03/30/24 Neutrophils # (Auto) 3.30 K/uL (1.40-6.50) 03/30/24 Lymphocytes # (Auto) 2.09 K/uL (1.20-3.40) 03/30/24 Monocytes # (Auto) 0.92 K/uL (0.11-0.59) H 03/30/24 Eosinophils # (Auto) 0.10 K/uL (0.00-0.50) 03/30/24 Basophils # (Auto) 0.04 K/uL (0.00-0.20) 03/30/24 Immature Granulocyte # (Auto) 0.01 K/uL (0.01-0.20) 4 Na 134 mmol/L (136-145) L 03/31/24 K 4.0 mmol/L (3.5-5.1) 03/31/24 Cl 108 mmol/L (98-107) H 03/31/24 CO2 20 mmol/L (21-32) L 03/31/24 Anion Gap 6 (3-11) 03/31/24 BUN 7 mg/dl (6-23) 03/31/24 Creatinine 0.61 mg/dl (0.6-1.2) 03/31/24 BUN/Creatinine Ratio 11.5 (10-20) 03/31/24 Glu 92 mg/dl (70-99(Fasting)) 03/31/24 Ca 8.4 mg/dl (8.6-10.3) L 03/31/24 Phosphorus Level 2.7 mg/dl (2.5-4.9) 03/30/24 Total Bilirubin 0.7 mg/dl (0.2-1.0) 03/31/24 AST 39 U/L (13-39) 03/31/24 ALT 44 U/L (7-52) 03/31/24 Alkaline Phosphatase 132 U/L (34-104) H 03/31/24 TP 7.0 gm/dl (6.0-8.3) 03/31/24 Albumin 3.8 gm/dl (3.4-5.0) 03/31/24 Globulin 3.2 gm/dl (2.5-4.0) 03/31/24 Albumin/Globulin Ratio 1.2 (0.9-2) 03/31/24 Mg 2.1 mg/dl (1.7-2.4) 03/31/24 04:40 Calcium Level 8.4 mg/dl (8.6-10.3) L 03/31/24 04:40 Prothromb Time International Ratio Pending 03/31/24 07:0 4 I & O Totals 24 Hours 03/30/24 03/31/24 04/01/24 06:59 06:59 06:59 Intake Total 2663 / 2663 Output Total 627 / 627 Balance 2035 / 2035 Cumulative 03/30/24 14:20 thru 03/31/24 06:18 Intake Total 2663 Output Total 627 Balance 2035 RT Ventilator Mngmt (Last Documented) Ventilator Ordered Settings Respiratory Rate 19 03/31/24 06:00 Ventilator - PT Measurements Respiratory Rate 19 Coding Level of Care Code 06908 SUB INP/OBS CARE 2/35MIN Diagnoses Intentional SSRI (selective serotonin reuptake inhibitor) overdose T43.222A Suicide attempt T14.91XA
[2024-03-31 07:48] LABS: Prothrombin Time 10.8 Seconds (9.0-12.0)
--- NOTE | 2024-03-31 07:57 | XRay Report ---
EXAM: XR KUB/Abdomen 1 view CLINICAL HISTORY: CONSTIPATION. TECHNIQUE: X-ray images of the abdomen were obtained in supine and upright positions. COMPARISON: No prior studies available for comparison. FINDINGS: Gas Pattern: Gas pattern within the abdomen is normal. No evidence of bowel obstruction or distention. Soft Tissues: Soft tissues of the abdomen appear normal without evidence of masses or calcifications. IMPRESSION: Normal abdominal X-ray. No acute abnormalities identified. Electronically signed by Kim Sal 03-31-2024 07:56 AM
--- NOTE | 2024-03-31 09:03 | Hospitalist Progress Note ---
Date of Service March 31, 2024 Assessment & Plan (1) Intentional drug overdose: (2) Overdose of sertraline: (3) Suicidal overdose: (4) Autoimmune liver disease: (5) Crohn's disease: (6) Intentional SSRI (selective serotonin reuptake inhibitor) overdose: (7) Suicide attempt: (8) Depression: Plan 28-year-old female with past medical history of depression with prior suicide attempt in July 2023 on sertraline, autoimmune liver disease on azathioprine, Crohn's disease on infliximab infusions every 6 weeks follows up at IBD clinic with [facility] was brought in by EMS to ED after being referred by police with a 302 petition from the patient's boyfriend for suicide attempt with sertraline overdose. #Suicide attempt #Intentional drug overdose with sertraline #Depression Patient was seen by cigarette vendor ICU Dr. Oneil has cleared the patient for downgrade Continue telemetry monitoring: Will downgrade to PCU Poison control department has recommended QTc monitoring and also recommended as needed Ativan IV bolus for persistent sinus tachycardia above 110 bpm QTc from this morning is 488 Continue one-to-one observation Awaiting psychiatry consult Continue IV fluids Seizure precautions #Autoimmune liver disease #Mild transaminitis #Crohn's disease Patient follows up with GI at [facility] and IBD center at [facility] Hold azathioprine for now Patient is on 6 weekly infusions of infliximab LFTs have improved: Monitor intermittently CODE STATUS: Full code DVT prophylaxis: Bilateral SCDs Care plan discussed with patient, nursing staff Admission and Anticipated Discharge Date Admission Date: March 30, 2024 Subjective Patient seen and examined Labs reviewed Telemetry reviewed EKG reviewed Overnight patient had visual hallucinations: Patient tells me hallucinations have improved She is refusing to eat until she sees her boyfriend Pankaj who apparently has broken up with her and is not taking her calls She denies any headache, dizziness, lightheadedness, chest pain or shortness of breath. She has one-to-one Physical Exam Physical Exam: General: No acute distress Psych: Awake and alert, oriented to place person and time HEENT: Anicteric sclera, moist oral mucosa CVS: Tachycardic Lungs: Bilateral air entry, no wheezing noted Abdomen: Soft, nontender, no rebound, no guarding Ext: No lower extremity edema, no calf tenderness Neuro: No focal motor deficits noted, able to move all 4 extremities Results & Data Results & Data Vital Signs (Past 12 Hours) Vital Signs Temp Pulse Pulse Resp BP BP Pulse Ox 03/31/24 08:00 131 H 17 137/81 99 03/31/24 07:13 36.8 C 123 H 18 139/85 99 03/31/24 06:00 116 H 19 121/76 100 03/31/24 05:00 115 H 12 130/81 100 03/31/24 04:00 36.9 C 121 H 14 129/89 98 03/31/24 03:00 110 H 16 131/73 98 03/31/24 02:00 36.5 C 118 H 16 133/83 99 03/31/24 00:00 125 H 03/31/24 00:00 36.7 C 120 H 24 132/87 98 03/30/24 23:00 36.8 C 110 H 16 136/80 98 03/30/24 22:00 112 H 22 127/82 98 O2 Del Method 03/31/24 08:00 Room Air 03/31/24 07:13 Room Air 03/31/24 06:00 Room Air 03/31/24 05:00 Room Air 03/31/24 04:00 Room Air 03/31/24 03:00 Room Air 03/31/24 02:00 Room Air 03/31/24 00:00 03/31/24 00:00 Room Air 03/30/24 23:00 Room Air 03/30/24 22:00 Room Air Laboratory Results Laboratory Results - last 24 hr 03/30/24 03/30/24 03/30/24 14:38 14:46 17:55 WBC 6.46 RBC 4.77 Hgb 14.8 Hct 43.8 MCV 91.8 MCH 31.0 MCHC 33.8 RDW Std Deviation 40.7 RDW Coeff of Gema 12.1 Plt Count 198 MPV 11.0 Immature Gran % (Auto) 0.2 Neut % (Auto) 51.1 Lymph % (Auto) 32.4 Sampson % (Auto) 14.2 Eos % (Auto) 1.5 Baso % (Auto) 0.6 Neut # (Auto) 3.30 Lymph # (Auto) 2.09 Sampson # (Auto) 0.92 H Eos # (Auto) 0.10 Baso # (Auto) 0.04 Immature Gran # (Auto) 0.01 Absolute Nucleated RBC Nucleated RBC % (auto) Platelet Estimate PT INR Sodium 135 L Potassium TNP Chloride 104 Carbon Dioxide 24 Anion Gap 7 BUN 7 Creatinine 0.58 L Est Cr Clr Drug Dosing 136.4 eGFR 127.12 BUN/Creatinine Ratio 12.1 Glucose 80 POC Glucose Lactate Calcium 9.7 Phosphorus 2.7 Magnesium 2.1 Total Bilirubin 0.6 AST TNP ALT 62 H Alkaline Phosphatase 166 H Total Protein 8.5 H Albumin 4.6 Globulin 3.9 Albumin/Globulin Ratio 1.2 Vitamin B12 TSH 3.144 HCG, Qual Negative Urine Color Urine Appearance Urine pH Ur Specific [place] Urine Protein Urine Glucose (UA) Urine Ketones Urine Blood Urine Nitrite Urine Bilirubin Urine Urobilinogen Ur Leukocyte Esterase Urine WBC (Auto) Urine RBC (Auto) U Hyaline Cast (Auto) U Epithel Cells (Auto) Urine Bacteria (Auto) Urine Test Nasal Screen MRSA (PCR) Negative Salicylates < 3.0 L Urine Opiates Screen Ur Methadone, Qual Urine Fentanyl Screen Acetaminophen < 3 L Urine Barbiturates Ur Phencyclidine (PCP) U Amphetamin/Meth Scrn MDMA (Ecstasy) Screen U OH-Alprazolam Confrm U Benzodiazepines Scrn 7-Amino Clonazepam Ur Nordiazepam Confirm U OH-ethylflurazepam U Lorazepam Cnf GC/MS U Oxazepam Confm GC/MS Ur Temazepam Confirm U OH-Triazolam Confirm U OH-Midazolam Confirm Ur Cocaine Metabolite U Marijuana (THC) Screen Drug Screen Comment Ethyl Alcohol mg/dL < 10.0 SARS-CoV-2, RNA, NAAT NEGATIVE 03/30/24 03/30/24 03/30/24 18:17 20:58 21:19 WBC RBC Hgb Hct MCV MCH MCHC RDW Std Deviation RDW Coeff of Gema Plt Count MPV Immature Gran % (Auto) Neut % (Auto) Lymph % (Auto) Sampson % (Auto) Eos % (Auto) Baso % (Auto) Neut # (Auto) Lymph # (Auto) Sampson # (Auto) Eos # (Auto) Baso # (Auto) Immature Gran # (Auto) Absolute Nucleated RBC Nucleated RBC % (auto) Platelet Estimate PT INR Sodium 135 L Potassium 3.6 3.3 L Chloride 107 Carbon Dioxide 18 L Anion Gap 10 BUN 8 Creatinine 0.57 L Est Cr Clr Drug Dosing 138.8 eGFR 127.66 BUN/Creatinine Ratio 14.0 Glucose 85 POC Glucose 86 Lactate Calcium 8.2 L Phosphorus Magnesium 1.8 1.9 Total Bilirubin AST 46 H ALT Alkaline Phosphatase Total Protein Albumin Globulin Albumin/Globulin Ratio Vitamin B12 TSH HCG, Qual Urine Color Urine Appearance Urine pH Ur Specific [place] Urine Protein Urine Glucose (UA) Urine Ketones Urine Blood Urine Nitrite Urine Bilirubin Urine Urobilinogen Ur Leukocyte Esterase Urine WBC (Auto) Urine RBC (Auto) U Hyaline Cast (Auto) U Epithel Cells (Auto) Urine Bacteria (Auto) Urine Test Nasal Screen MRSA (PCR) Salicylates Urine Opiates Screen Ur Methadone, Qual Urine Fentanyl Screen Acetaminophen Urine Barbiturates Ur Phencyclidine (PCP) U Amphetamin/Meth Scrn MDMA (Ecstasy) Screen U OH-Alprazolam Confrm U Benzodiazepines Scrn 7-Amino Clonazepam Ur Nordiazepam Confirm U OH-ethylflurazepam U Lorazepam Cnf GC/MS U Oxazepam Confm GC/MS Ur Temazepam Confirm U OH-Triazolam Confirm U OH-Midazolam Confirm Ur Cocaine Metabolite U Marijuana (THC) Screen Drug Screen Comment Ethyl Alcohol mg/dL SARS-CoV-2, RNA, NAAT 03/30/24 03/31/24 03/31/24 Unknown 00:39 04:24 WBC RBC Hgb Hct MCV MCH MCHC RDW Std Deviation RDW Coeff of Gema Plt Count MPV Immature Gran % (Auto) Neut % (Auto) Lymph % (Auto) Sampson % (Auto) Eos % (Auto) Baso % (Auto) Neut # (Auto) Lymph # (Auto) Sampson # (Auto) Eos # (Auto) Baso # (Auto) Immature Gran # (Auto) Absolute Nucleated RBC Nucleated RBC % (auto) Platelet Estimate PT INR Sodium 134 L Potassium 3.8 Chloride 106 Carbon Dioxide 20 L Anion Gap 8 BUN 8 Creatinine 0.59 L Est Cr Clr Drug Dosing 134.1 eGFR 126.60 BUN/Creatinine Ratio 13.6 Glucose 106 H POC Glucose Lactate 1.3 Calcium 8.5 L Phosphorus Magnesium 1.9 Total Bilirubin AST ALT Alkaline Phosphatase Total Protein Albumin Globulin Albumin/Globulin Ratio Vitamin B12 TSH HCG, Qual Urine Color Yellow Urine Appearance Cloudy A Urine pH 5.0 Ur Specific [place] 1.019 Urine Protein Negative Urine Glucose (UA) Negative Urine Ketones Negative Urine Blood 3+ H Urine Nitrite Negative Urine Bilirubin Negative Urine Urobilinogen Negative Ur Leukocyte Esterase Negative Urine WBC (Auto) 0-5 Urine RBC (Auto) >20 H U Hyaline Cast (Auto) 0-2 U Epithel Cells (Auto) 0-2 Urine Bacteria (Auto) None Seen Urine Test Negative Nasal Screen MRSA (PCR) Salicylates Urine Opiates Screen Neg Ur Methadone, Qual Neg Urine Fentanyl Screen Neg Acetaminophen Urine Barbiturates Neg Ur Phencyclidine (PCP) Neg U Amphetamin/Meth Scrn Neg MDMA (Ecstasy) Screen Neg U OH-Alprazolam Confrm Pending U Benzodiazepines Scrn Pos H 7-Amino Clonazepam Pending Ur Nordiazepam Confirm Pending U OH-ethylflurazepam Pending U Lorazepam Cnf GC/MS Pending U Oxazepam Confm GC/MS Pending Ur Temazepam Confirm Pending U OH-Triazolam Confirm Pending U OH-Midazolam Confirm Pending Ur Cocaine Metabolite Neg U Marijuana (THC) Screen Neg Drug Screen Comment Pending Ethyl Alcohol mg/dL SARS-CoV-2, RNA, NAAT 03/31/24 03/31/24 03/31/24 04:40 05:30 07:04 WBC Cancelled 6.90 RBC Cancelled 3.88 L Hgb Cancelled 12.2 Hct Cancelled 35.7 L MCV Cancelled 92.0 MCH Cancelled 31.4 MCHC Cancelled 34.2 RDW Std Deviation Cancelled 41.1 RDW Coeff of Gema Cancelled 12.2 Plt Count Cancelled 170 MPV Cancelled 11.1 Immature Gran % (Auto) Neut % (Auto) Lymph % (Auto) Sampson % (Auto) Eos % (Auto) Baso % (Auto) Neut # (Auto) Lymph # (Auto) Sampson # (Auto) Eos # (Auto) Baso # (Auto) Immature Gran # (Auto) Absolute Nucleated RBC Cancelled Nucleated RBC % (auto) Cancelled Platelet Estimate Cancelled PT Cancelled 10.8 INR Cancelled 1.0 Sodium 134 L Potassium 4.0 Chloride 108 H Carbon Dioxide 20 L Anion Gap 6 BUN 7 Creatinine 0.61 Est Cr Clr Drug Dosing 129.7 eGFR 125.59 BUN/Creatinine Ratio 11.5 Glucose 92 POC Glucose Lactate Calcium 8.4 L Phosphorus Magnesium 2.1 Total Bilirubin 0.7 AST 39 ALT 44 Alkaline Phosphatase 132 H Total Protein 7.0 Albumin 3.8 Globulin 3.2 Albumin/Globulin Ratio 1.2 Vitamin B12 283 TSH HCG, Qual Urine Color Urine Appearance Urine pH Ur Specific [place] Urine Protein Urine Glucose (UA) Urine Ketones Urine Blood Urine Nitrite Urine Bilirubin Urine Urobilinogen Ur Leukocyte Esterase Urine WBC (Auto) Urine RBC (Auto) U Hyaline Cast (Auto) U Epithel Cells (Auto) Urine Bacteria (Auto) Urine Test Nasal Screen MRSA (PCR) Salicylates Urine Opiates Screen Ur Methadone, Qual Urine Fentanyl Screen Acetaminophen Urine Barbiturates Ur Phencyclidine (PCP) U Amphetamin/Meth Scrn MDMA (Ecstasy) Screen U OH-Alprazolam Confrm U Benzodiazepines Scrn 7-Amino Clonazepam Ur Nordiazepam Confirm U OH-ethylflurazepam U Lorazepam Cnf GC/MS U Oxazepam Confm GC/MS Ur Temazepam Confirm U OH-Triazolam Confirm U OH-Midazolam Confirm Ur Cocaine Metabolite U Marijuana (THC) Screen Drug Screen Comment Ethyl Alcohol mg/dL SARS-CoV-2, RNA, NAAT 03/31/24 03/31/24 07:58 08:45 WBC RBC Hgb Hct MCV MCH MCHC RDW Std Deviation RDW Coeff of Gema Plt Count MPV Immature Gran % (Auto) Neut % (Auto) Lymph % (Auto) Sampson % (Auto) Eos % (Auto) Baso % (Auto) Neut # (Auto) Lymph # (Auto) Sampson # (Auto) Eos # (Auto) Baso # (Auto) Immature Gran # (Auto) Absolute Nucleated RBC Nucleated RBC % (auto) Platelet Estimate PT INR Sodium Pending Potassium Pending Chloride Pending Carbon Dioxide Pending Anion Gap Pending BUN Pending Creatinine Pending Est Cr Clr Drug Dosing Pending eGFR Pending BUN/Creatinine Ratio Pending Glucose Pending POC Glucose 84 Lactate Calcium Pending Phosphorus Magnesium Pending Total Bilirubin AST ALT Alkaline Phosphatase Total Protein Albumin Globulin Albumin/Globulin Ratio Vitamin B12 TSH HCG, Qual Urine Color Urine Appearance Urine pH Ur Specific [place] Urine Protein Urine Glucose (UA) Urine Ketones Urine Blood Urine Nitrite Urine Bilirubin Urine Urobilinogen Ur Leukocyte Esterase Urine WBC (Auto) Urine RBC (Auto) U Hyaline Cast (Auto) U Epithel Cells (Auto) Urine Bacteria (Auto) Urine Test Nasal Screen MRSA (PCR) Salicylates Urine Opiates Screen Ur Methadone, Qual Urine Fentanyl Screen Acetaminophen Urine Barbiturates Ur Phencyclidine (PCP) U Amphetamin/Meth Scrn MDMA (Ecstasy) Screen U OH-Alprazolam Confrm U Benzodiazepines Scrn 7-Amino Clonazepam Ur Nordiazepam Confirm U OH-ethylflurazepam U Lorazepam Cnf GC/MS U Oxazepam Confm GC/MS Ur Temazepam Confirm U OH-Triazolam Confirm U OH-Midazolam Confirm Ur Cocaine Metabolite U Marijuana (THC) Screen Drug Screen Comment Ethyl Alcohol mg/dL SARS-CoV-2, RNA, NAAT Diagnostic Findings KUB X-Ray 03/31/24 00:30 EXAM: XR KUB/Abdomen 1 view CLINICAL HISTORY: CONSTIPATION. TECHNIQUE: X-ray images of the abdomen were obtained in supine and upright positions. COMPARISON: No prior studies available for comparison. FINDINGS: Gas Pattern: Gas pattern within the abdomen is normal. No evidence of bowel obstruction or distention. Soft Tissues: Soft tissues of the abdomen appear normal without evidence of masses or calcifications. IMPRESSION: Normal abdominal X-ray. No acute abnormalities identified. Electronically signed by Kim Sal 03-31-2024 07:56 AM PG Care Time/CCT Total # of Minutes Spent Total Time Spent with Patient: Total time spent is greater than 50% in coordination of care (as documented) at patient's floor/unit and/or counseling patient: Coding Level of Care Code 00745 SUB INP/OBS CARE 3/50MIN Diagnoses Intentional drug overdose T50.902A Encounter type: initial encounter Overdose of sertraline T43.221A Suicidal overdose T50.902A Autoimmune liver disease K76.89 Crohn's disease K50.90 Intentional SSRI (selective serotonin reuptake inhibitor) overdose T43.222A Suicide attempt T14.91XA Depression F32.A Depression Type: unspecified (1) Intentional drug overdose Encounter type: initial encounter Qualified Code(s): T50.902A - Poisoning by unspecified drugs, medicaments and biological substances, intentional self-harm, initial encounter (8) Depression Depression Type: unspecified Qualified Code(s): F32.A - Depression, uns pecified
[2024-03-31 09:14] LABS: BUN Creatinine Ratio 10.9 (10-20); Calcium 8.5 mg/dl (8.6-10.3); Creatinine Clr Calc Pharmacy 143.8 ml/min; Magnesium 1.9 mg/dl (1.7-2.4); Potassium 3.8 mmol/L (3.5-5.1)
[2024-03-31] MEDS: MAGNESIUM OXIDE 400 MG TAB PO SCH (09:51)
[2024-03-31 13:33] LABS: BUN Creatinine Ratio 8.8 (10-20); Calcium 8.6 mg/dl (8.6-10.3); Creatinine Clr Calc Pharmacy 138.8 ml/min; Magnesium 2.1 mg/dl (1.7-2.4); Potassium 3.8 mmol/L (3.5-5.1)
--- NOTE | 2024-03-31 14:21 | Psychiatric Consultation ---
Date of Consultation March 31, 2024 Impression / Recommendations Impression 28 y/o F h/o anxiety, depression on sertraline, crohn's disease, autoimmune liver disease presents with an overdose of Sertraline in the context of breakup with her boyfriend. Admitted to ICU for monitoring. Psychiatry consulted for evaluation. Patient appears mildly delirious with poor memory recall, poor registration, delayed speech; likely in response to recent antidepressant ingestion. She is hyperfocused on resuming relationship with boyfriend and presents poor insight into current medical situation and mental health symptoms. High suspicion for cluster B symptomatology with h/o impulsive behavior, self harm, repeated break- ups, fear of abandonment. Cannot rule out erotomanic delusions about her boyfriend. Labs reviewed: Alkaline phosphatase trending down currently at 132; CBC, CBC, beta hCG, UA unremarkable; UDS positive for benzodiazepines; EKG at 113 bpm corrected QTc using Fridericia formula is 440 ms within high normal range. Recommend additional day of monitoring and transfer to inpatient behavioral health unit for management; pt agreeable. Overall, I spent a total of 80 minutes with this case including review of chart records, nursing report, review of lab work, direct evaluation of the patient at bedside, counseling the patient, discussion of the patient with the hospitalist provider, discussion with the psychiatric liaison during clinical rounds, and documentation in the electronic health record. (1) Suicide attempt: (2) Intentional SSRI (selective serotonin reuptake inhibitor) overdose: (3) Depression: Depression Type: unspecified Qualified Code(s): F32.A - Depression, unspecified (4) Anxiety: (5) Cluster B personality disorder: (6) Delirium due to another medical condition: Plan -Hold home psychotropics -Inpatient psychiatry admission once medically cleared -Continue bedside sitter Psych History Identifying Data 28 y/o F h/o anxiety, depression on sertraline, crohn's disease, autoimmune liver disease presents with an overdose of Sertraline in the context of breakup with her boyfriend. Admitted to ICU for monitoring. Psychiatry consulted for evaluation. Chief Complaint "Suicide attempt" History of Present Illness The patient is seen in the ICU and presents some slightly delayed speech. She is alert and oriented to ICU [facility]. When asked about year she replies 407 and then asks for the make and model; redirected and reports it is 2023. When asked about her recent suicide attempt she begins to talk about her past attempt and requires redirection. She reports being in love with her boyfriend and that he is dealing with a lot of anxiety and will get treatment. Says they had an argument and he wanted to leave her. She took 40 100-mg tablets of sertraline yesterday afternoon with the intention to . Now reports having intermittent SI. Through our conversation she reports wanting to make her boyfriend see how much in love they actually are. Says her boyfriend felt that their relationship was not optimal and they needed to break up. She reports multiple past break-ups and past suicide attempt in July of this year where she took twelve 100 mg tablets of sertraline and was hospitalized at [facility]. Patient reports that boyfriend is upset with her because she uses suicidal intent as a threat to stay together. Patient has difficulty answering my questions for my evaluation due to returning to talk about her relationship with boyfriend and requires constant redirection. Pleading with nurse liaison to allow us to facilitate a counseling session between her and boyfriend. Social history: From [place]. was living with boyfriend in [place]. Previously with mother. No current outpatient psychiatry or counseling connection. Denies access to firearms. Past self-harm with a razor. Allergies Allergy/AdvReac Type Severity Reaction Status Date / Time lactose Allergy Verified 03/31/24 09:54 latex Allergy Rash Verified 03/30/24 17:07 Home Medications Medication Instructions Recorded Confirmed Type azathioprine 50 mg tablet 100 mg PO HS liver disease 02/13/24 03/30/24 History infliximab-abda 100 mg intravenous 100 mg IV .EVERY 6 WEEKS crohns 02/13/24 03/30/24 History solution (Renflexis) sertraline 100 mg tablet 100 mg PO QAM anxiety 02/13/24 03/30/24 History cholecalciferol (vitamin D3) 1,250 1,250 mcg PO WK 03/30/24 03/30/24 History mcg (50,000 unit) capsule sertraline 50 mg tablet 50 mg PO QAM 03/30/24 03/30/24 History Patient History Medical History History of Crohn's disease Social History Smoking Status: Never smoker Hx Alcohol Use: No Hx Substance Use: Yes Last Used Substance Other:: weeks ago Preferred Language: Tamaz[place] Communication Ability: Effective Computer Tech Required: No Beliefs That Will Affect Care: None Current Living Situation: Significant Other Feels Safe at Home: Yes Assistive Devices: None Physical Exam Mental Examination: Appearance: Disheveled Eye Contact: Diverts Contact Motor Behavior: Slowed Speech: Soft and Delayed Mood: Anxious and Sad Affect: Anxious and Constricted Thought Process: Evasive and Goal Oriented Thought Content: Intact and Racing Hallucinations: None Insight: Poor Judgement: Poor Vital Signs (Past 24 Hours): Last Vital Signs Temp 36.8 C 03/31/24 12:01 Pulse 122 H 03/31/24 12:01 Resp 18 03/31/24 12:01 BP 136/78 03/31/24 12:01 Pulse Ox 98 03/31/24 12:01 O2 Del Method Room Air 03/31/24 12:01 O2 Flow Rate 0 03/30/24 14:25 Results & Data (PSY) Medications Administered Parenteral Electrolytes (Plasma-Lyte A Ph 7.4) 1,000 mls @ 100 mls/hr IV .Q10H SHLOMO Stop: 04/01/24 10:00 Last Admin: 03/31/24 13:04 Dose: 100 mls/hr Documented By: Infusion: 03/31/24 13:04 Dose: Infused Documented By: Infusion: 03/31/24 09:20 Dose: 100 mls/hr Documented By: Admin: 03/31/24 05:00 Dose: 125 mls/hr Documented By: [id number] Infusion: 03/31/24 04:51 Dose: Infused Documented By: [id number] Admin: 03/30/24 20:51 Dose: 125 mls/hr Documented By: [id number] Lorazepam (Lorazepam 2 Mg/1 Ml Vial) 1 mg IV Q2H PRN PRN Reason: Anxiety/Agitation Stop: 04/29/24 23:58 Last Admin: 03/31/24 13:11 Dose: 1 mg Documented By: Admin: 03/31/24 08:48 Dose: 1 mg Documented By: Admin: 03/31/24 06:26 Dose: 1 mg Documented By: [id number] Admin: 03/31/24 04:32 Dose: 1 mg Documented By: [id number] Admin: 03/31/24 02:08 Dose: 1 mg Documented By: [id number] Admin: 03/31/24 00:16 Dose: 1 mg Documented By: [id number] Magnesium Oxide (Magnesium Oxide 400 Mg Tab) 400 mg PO QAM [facility] Stop: 04/30/24 09:29 Last Admin: 03/31/24 09:51 Dose: 400 mg Documented By: GINNA [place] [address] IN/OBS CONSULT LVL 5,80M Patient Type New History Detailed Exam Detailed Medical Decision Making High Complexity Diagnoses Suicide attempt T14.91XA Intentional SSRI (selective serotonin reuptake inhibitor) overdose T43.222A Depression F32.A Depression Type: unspecified Anxiety F41.9 Cluster B personality disorder F60.89 Delirium due to another medical condition F05
[2024-03-31] MEDS: POTASSIUM CHLORIDE CRTAB 20 MEQ TABCR PO STA (14:49)
--- NOTE | 2024-03-31 16:01 | XCELERA ---
[id number]
[2024-03-31] MEDS: POTASSIUM CHLORIDE CRTAB 20 MEQ TABCR PO ONE (19:52)
--- NOTE | 2024-04-01 06:11 | Electrocardiogram Report ---
Test Reason : Blood Pressure : */* mmHG Vent. Rate : 115 BPM Atrial Rate : 115 BPM P-R Int : 156 ms QRS Dur : 94 ms QT Int : 344 ms P-R-T Axes : 66 62 59 degrees QTcB Int : 475 ms Sinus tachycardia Otherwise normal ECG When compared with ECG of 30-Mar-2024 17:05, Incomplete right bundle branch block is no longer Present Confirmed by Sterling Nails ([id number]) on 04/01/2024 6:11:26 AM Referred By: REFERRED SELF Confirmed By: Sterling Nails
--- NOTE | 2024-04-01 06:11 | Electrocardiogram Report ---
Test Reason : Blood Pressure : */* mmHG Vent. Rate : 112 BPM Atrial Rate : 112 BPM P-R Int : 156 ms QRS Dur : 92 ms QT Int : 342 ms P-R-T Axes : 63 55 56 degrees QTcB Int : 466 ms Sinus tachycardia Otherwise normal ECG When compared with ECG of 30-Mar-2024 22:42, No significant change was found Confirmed by Sterling Nails ([id number]) on 04/01/2024 6:11:34 AM Referred By: REFERRED SELF Confirmed By: Sterling Nails
--- NOTE | 2024-04-01 06:11 | Electrocardiogram Report ---
Test Reason : Blood Pressure : */* mmHG Vent. Rate : 116 BPM Atrial Rate : 116 BPM P-R Int : 140 ms QRS Dur : 90 ms QT Int : 326 ms P-R-T Axes : 76 56 59 degrees QTcB Int : 453 ms Sinus tachycardia Possible Left atrial enlargement Incomplete right bundle branch block When compared with ECG of 13-Feb-2024 15:59, Vent. rate has increased by 43 bpm Confirmed by Sterling Nails ([id number]) on 04/01/2024 6:10:58 AM Referred By: REFERRED SELF Confirmed By: Sterling Nails
--- NOTE | 2024-04-01 06:11 | Electrocardiogram Report ---
Test Reason : Blood Pressure : */* mmHG Vent. Rate : 105 BPM Atrial Rate : 105 BPM P-R Int : 136 ms QRS Dur : 96 ms QT Int : 348 ms P-R-T Axes : 69 32 48 degrees QTcB Int : 459 ms Sinus tachycardia Possible Left atrial enlargement Incomplete right bundle branch block Borderline ECG When compared with ECG of 30-Mar-2024 14:28, No significant change was found Confirmed by Sterling Nails ([id number]) on 04/01/2024 6:11:11 AM Referred By: REFERRED SELF Confirmed By: Sterling Nails
--- NOTE | 2024-04-01 06:12 | Electrocardiogram Report ---
Test Reason : Blood Pressure : */* mmHG Vent. Rate : 113 BPM Atrial Rate : 113 BPM P-R Int : 150 ms QRS Dur : 94 ms QT Int : 336 ms P-R-T Axes : 64 62 60 degrees QTcB Int : 461 ms Sinus tachycardia Otherwise normal ECG When compared with ECG of 31-Mar-2024 03:15, No significant change was found Confirmed by Sterling Nails ([id number]) on 04/01/2024 6:12:13 AM Referred By: REFERRED SELF Confirmed By: Sterling Nails
[2024-04-01 06:46] LABS: Hematocrit (blood only) 36.8 % (37.0-47.0); Hemoglobin 12.7 g/dl (12.0-16.0); Mean Corpuscular Hemoglobin 31.8 pg (25.0-34.0); Mean Corpuscular Hgb Conc 34.5 g/dL (32.0-36.0); Mean Platelet Volume 10.8 fL (9.4-12.4); Platelet Count 165 K/uL (130-400); RDW Coefficient of Variation 12.2 % (11.5-14.5); RDW Standard Deviation 41.4 fL (36.4-46.3); White Blood Count 8.79 K/ul (4.8-10.8)
[2024-04-01 07:14] LABS: Albumin Level 3.5 gm/dl (3.4-5.0); Bilirubin,Total 0.7 mg/dl (0.2-1.0); Calcium 8.4 mg/dl (8.6-10.3); Magnesium 1.9 mg/dl (1.7-2.4); Potassium 4.1 mmol/L (3.5-5.1)
[2024-04-01 07:20] LABS: Albumin Globulin Ratio 1.1 (0.9-2); BUN Creatinine Ratio 11.4 (10-20); Creatinine Clr Calc Pharmacy 179.8 ml/min; Globulin 3.2 gm/dl (2.5-4.0); Total Protein 6.7 gm/dl (6.0-8.3)
--- NOTE | 2024-04-01 10:21 | Hospitalist Progress Note ---
Date of Service April 01, 2024 Assessment & Plan (1) Intentional drug overdose: (2) Overdose of sertraline: (3) Suicidal overdose: (4) Autoimmune liver disease: (5) Crohn's disease: (6) Intentional SSRI (selective serotonin reuptake inhibitor) overdose: (7) Suicide attempt: (8) Depression: (9) Abnormal LFTs: Plan 28-year-old female with past medical history of depression with prior suicide attempt in July 2023 on sertraline, autoimmune liver disease on azathioprine, Crohn's disease on infliximab infusions every 6 weeks follows up at IBD clinic with [facility] was brought in by EMS to ED after being referred by police with a 302 petition from the patient's boyfriend for suicide attempt with sertraline overdose. #Suicide attempt #Intentional drug overdose with sertraline #Depression Continue telemetry monitoring Poison control department has recommended QTc monitoring and also recommended as needed Ativan IV bolus for persistent sinus tachycardia above 110 bpm QTc from this morning is 474: Improved from 488: Check EKG in a.m. Continue one-to-one observation Psychiatry saw the patient and patient will need inpatient psychiatry care once she is medically cleared Ativan as needed Check CT of head given visual hallucinations Seizure precautions #Autoimmune liver disease #Mild transaminitis #Crohn's disease Patient follows up with GI at [facility] and IBD center at [facility] Patient is on 6 weekly infusions of infliximab: Last dose was on 03/28/2024 AST is abruptly risen to 757 GI consult Check hepatitis screen Check ultrasound of liver Patient not very compliant with azathioprine since October 2023 Await GI consult and recommendations CODE STATUS: Full code DVT prophylaxis: Bilateral SCDs Care plan discussed with patient, nursing staff Admission and Anticipated Discharge Date Admission Date: March 30, 2024 Subjective Patient seen and examined Patient feels her head is in a fog and still has occasional visual hallucinations QTc is stable Telemetry shows sinus tachycardia Labs reviewed: LFTs of gone up significantly: AST is 757 She denies any nausea, vomiting, diarrhea abdominal pain Patient does admit that she has not really been compliant with her azathioprine and stopped taking it after mono in October 2023. She occasionally will take it once or twice a week but generally has not been compliant She has been compliant with infliximab infusions and last infusion was on March 28, 2024 Physical Exam Physical Exam: General: No acute distress Psych: Awake and alert, oriented to place person and time HEENT: Anicteric sclera, moist oral mucosa CVS: Tachycardic Lungs: Bilateral air entry, no wheezing noted Abdomen: Soft, nontender, no rebound, no guarding Ext: No lower extremity edema, no calf tenderness Neuro: No focal motor deficits noted, able to move all 4 extremities Results & Data Results & Data Vital Signs (Past 12 Hours) Vital Signs Temp Pulse Pulse Resp BP Pulse Ox O2 Del Method 04/01/24 09:00 36.9 C 100 H 18 113/67 98 Room Air 04/01/24 03:08 36.4 C L 108 H 16 113/75 97 Room Air 04/01/24 00:00 118 H 03/31/24 23:45 Room Air 03/31/24 23:25 36.7 C 100 H 18 116/73 97 Room Air Laboratory Results Laboratory Results - last 24 hr 03/31/24 04/01/24 12:29 06:22 WBC 8.79 RBC 4.00 L Hgb 12.7 Hct 36.8 L MCV 92.0 MCH 31.8 MCHC 34.5 RDW Std Deviation 41.4 RDW Coeff of Gema 12.2 Plt Count 165 MPV 10.8 Sodium 136 137 Potassium 3.8 4.1 Chloride 109 H 110 H Carbon Dioxide 20 L 20 L Anion Gap 7 7 BUN 5 L 5 L Creatinine 0.57 L 0.44 L Est Cr Clr Drug Dosing 138.8 179.8 eGFR 127.66 135.87 BUN/Creatinine Ratio 8.8 L 11.4 Glucose 88 72 Calcium 8.6 8.4 L Magnesium 2.1 1.9 Total Bilirubin 0.7 AST 757 H ALT 115 H Alkaline Phosphatase 120 H Total Protein 6.7 Albumin 3.5 Globulin 3.2 Albumin/Globulin Ratio 1.1 PG Care Time/CCT Total # of Minutes Spent Total Time Spent with Patient: Total time spent is greater than 50% in coordination of care (as documented) at patient's floor/unit and/or counseling patient: Coding Level of Care Code 08953 SUB INP/OBS CARE 3/50MIN Diagnoses Intentional drug overdose T50.902A Encounter type: initial encounter Overdose of sertraline T43.221A Suicidal overdose T50.902A Autoimmune liver disease K76.89 Crohn's disease K50.90 Intentional SSRI (selective serotonin reuptake inhibitor) overdose T43.222A Suicide attempt T14.91XA Depression F32.A Depression Type: unspecified Abnormal LFTs R79.89 (1) Intentional drug overdose Encounter type: initial encounter Qualified Code(s): T50.902A - Poisoning by unspecified drugs, medicaments and biological substances, intentional self-harm, initial encounter (8) Depression Depression Type: unspecified Qualified Code(s): F32.A - Depression, unspecified
[2024-04-01 11:06] LABS: Albumin Globulin Ratio 1.2 (0.9-2); Albumin Level 3.6 gm/dl (3.4-5.0); BUN Creatinine Ratio 13.2 (10-20); Bilirubin,Total 0.6 mg/dl (0.2-1.0); Calcium 8.5 mg/dl (8.6-10.3); Creatinine Clr Calc Pharmacy 149.3 ml/min; Globulin 3.1 gm/dl (2.5-4.0); Magnesium 1.8 mg/dl (1.7-2.4); Potassium 4.1 mmol/L (3.5-5.1); Total Protein 6.7 gm/dl (6.0-8.3)
--- NOTE | 2024-04-01 11:22 | Gastrointestinal Consultation ---
Date of Consultation April 01, 2024 Assessment & Plan (1) Abnormal LFTs: Patient currently admitted after a suicide attempt. She had initial rise in LFTs that were improving but then had a sudden worsening with a rise this morning. - continue to follow and trend LFTs. - US abdomen has been ordered. await results. - will discuss case further with Dr. Anthony, further recommendations to follow. Supervising Physician Co-Signing Physician Notes I personally saw and examined the patient. I have reviewed the chart and agree with the documentation provided by the DISABILITY AIDE including discussion about the assessment, treatment and plan. Briefly, 28 year old female with past medical history of depression with prior suicide attempt in July 2023 on sertraline, autoimmune liver disease on azathioprine, Crohn's disease on infliximab infusions every 6 weeks who was brought in by EMS to ED on 03/30 after being referred by police with a 302 petition from the patient's boyfriend for suicide attempt with sertraline overdose. She admits she took about 40 tablets of 100mg sertraline. She had some initial elevations in LFTs which were trending down, but then had a sudden spike again today with AST rising from 39 to 757. The patient admits that she has not been taking her azathioprine over the past 6 months after developing mono. She has taken 1 to 2 tablets/week and has not refilled the azathioprine recently. This could be a flare of her autoimmune hepatitis over DILI (drug-induced liver toxicity). Even though she took 4000 mg of sertraline, liver toxicity from sertraline is quite uncommon. Will check a serum IgG and redo her LFTs in the morning. If they continue to rise, we will need to use steroids. I do want to make sure that is okay for psychiatry given steroids in the past that increased her anxiety. History of Present Illness Reason for Consultation: H/o Autoimmune hepatitis ( AIH), suicide attempt. Requesting Physician: Larry Linares MD Attending Physician: Larry Linares MD History of Present Illness Patient is a 28 year old female with past medical history of depression with prior suicide attempt in July 2023 on sertraline, autoimmune liver disease on azathioprine, Crohn's disease on infliximab infusions every 6 weeks who was brought in by EMS to ED on 03/30 after being referred by police with a 302 petition from the patient's boyfriend for suicide attempt with sertraline overdose. She admits she took about 40 tablets of 100mg sertraline. She had some initial elevations in LFTs which were trending down, but then had a sudden spike again today with AST rising from 39 to 757. She endorses some nausea and reflux which is usually controlled with home PPI. she denies any drug use outside of marijuana. no etoh use. For her Crohn's disease and AIH, she follows with [facility]. she denies any vomiting, abdominal pain, jaundice, acholic stools, changes in bowels, melena, and brbpr. 03/31/24 AST 39, ALT 44, ALK 132, T BILI 0.7 04/01/24 AST 757, ALT 115, ALK 120, T BILI 0.7 Allergies Allergy/AdvReac Type Severity Reaction Status Date / Time lactose Allergy Verified 03/31/24 09:54 latex Allergy Rash Verified 03/30/24 17:07 Home Medications Medication Instructions Recorded Confirmed Type azathioprine 50 mg tablet 100 mg PO HS liver disease 02/13/24 03/30/24 History infliximab-abda 100 mg intravenous 100 mg IV .EVERY 6 WEEKS crohns 02/13/24 03/30/24 History solution (Renflexis) sertraline 100 mg tablet 100 mg PO QAM anxiety 02/13/24 03/30/24 History cholecalciferol (vitamin D3) 1,250 1,250 mcg PO WK 03/30/24 03/30/24 History mcg (50,000 unit) capsule sertraline 50 mg tablet 50 mg PO QAM 03/30/24 03/30/24 History Patient History Medical History History of Crohn's disease Social History Smoking Status: Never smoker Hx Alcohol Use: No Hx Substance Use: Yes Last Used Substance Other:: weeks ago Preferred Language: Ethiopian Communication Ability: Effective Logistics Project Manager Required: No Beliefs That Will Affect Care: None Current Living Situation: Significant Other Feels Safe at Home: Yes Assistive Devices: None Review of Systems Review of Systems: All systems reviewed & are unremarkable except as noted in HPI & below Physical Exam Constitutional: WD/WN, vitals as above Respiratory: normal respiratory effort, lungs clear to auscultation Cardiovascular: Rate/Rhythm: regular rate and regular rhythm Gastrointestinal (Abdomen): normal bowel sounds, soft, nontender, no hepatosplenomegaly Psychiatric: Orientation: alert and oriented x 3 Results & Data Vital Signs (Past 12 Hours) Vital Signs Temp Pulse Pulse Resp BP Pulse Ox O2 Del Method 04/01/24 09:00 98.4 F 100 H 18 113/67 98 Room Air 04/01/24 03:08 97.5 F L 108 H 16 113/75 97 Room Air 04/01/24 00:00 118 H 03/31/24 23:45 Room Air 03/31/24 23:25 98.1 F 100 H 18 116/73 97 Room Air Coding Level of Care Code 28732 IN/OBS CONSULT LVL 4,60M Diagnoses Abnormal LFTs R79.89
--- NOTE | 2024-04-01 14:54 | Ultrasound Report ---
ABDOMINAL ULTRASOUND, RIGHT UPPER QUADRANT HISTORY: Elevated LFTs with reported acute hepatitis RISING LFT. COMPARISON: None. FINDINGS: Pancreas: The pancreas is mostly obscured by bowel gas. The imaged portions appear unremarkable. Liver: Unremarkable. No evidence of cirrhosis or hepatic mass. No ascites. Gallbladder: Cholecystectomy. CBD: 3 mm Right kidney: No hydronephrosis. IMPRESSION: Unremarkable exam status post cholecystectomy ACT 112: Negative or not required by law. Electronically signed by: Angel Harper M.D. 04/01/2024 2:52 PM
--- NOTE | 2024-04-01 15:15 | CT Scan Report ---
CT head/brain wo con CLINICAL HISTORY: HALLUCINATIONS Technique: Contiguous axial CT images of the head were acquired from the base of the skull to the chandler kirby without intravenous contrast administration. Images were viewed in brain, subdural and bone [facility]. Automated dose lowering techniques and/or adjustment according to patient size were utilized for this exam. Comparison: None available at the time of this dictation. Findings: The ventricles, basal cisterns, and cerebral sulci are normal. There is no acute intracranial hemorrh age or evidence of acute territorial infarction. Neither mass effect, shift of the midline structures , nor abnormal extra-axial fluid collections are shown. Imaged portions of the paranasal sinuses and mastoid air cells are clear. The orbits appear normal. There are no acute fractures of the calvaria or scalp swelling. Impression: No acute intracranial hemorrhage, no evidence of acute territorial infarction or other acute intracra nial disease process. ACT 112: Negative or not required by law. Electronically signed by: Jordy Pizano M.D. 04/01/2024 3:14 PM
[2024-04-01 15:41] LABS: Immunoglobulin G 1452.7 mg/dl (635-1741)
[2024-04-01] MEDS: POTASSIUM CHLORIDE CRTAB 20 MEQ TABCR PO STA (17:37)
[2024-04-01] MEDS: CYANOCOBALAMIN 1000 MCG/ML VIAL IM SCH (17:38)
--- NOTE | 2024-04-01 21:32 | Communication Note ---
Date of Service: April 01, 2024 Spoke with poison control. Initially wanted to start acetylcysteine. Though on further review chest recommended to monitor liver enzymes. LFTs every 6 hours ordered.
[2024-04-01 22:08] LABS: Albumin Level 3.8 gm/dl (3.4-5.0); Bilirubin Direct 0.1 mg/dl (0-0.2); Bilirubin,Total 0.5 mg/dl (0.2-1.0); Total Protein 6.7 gm/dl (6.0-8.3)
--- NOTE | 2024-04-01 23:39 | Electrocardiogram Report ---
Test Reason : Blood Pressure : */* mmHG Vent. Rate : 113 BPM Atrial Rate : 113 BPM P-R Int : 154 ms QRS Dur : 98 ms QT Int : 346 ms P-R-T Axes : 57 43 48 degrees QTcB Int : 474 ms Sinus tachycardia Possible Left atrial enlargement Incomplete right bundle branch block Borderline ECG When compared with ECG of 31-Mar-2024 06:52, Incomplete right bundle branch block is now Present Confirmed by Sterling Nails ([id number]) on 04/01/2024 11:38:51 PM Referred By: REFERRED SELF Confirmed By: Sterling Nails
[2024-04-02] MEDS: AcetylCYSTEINE IV 21 HR REGIMEN (21-40KG) IV STA (07:43)
[2024-04-02] MEDS: STAT IV/IM STA (07:43)
[2024-04-02 07:50] LABS: Hematocrit (blood only) 35.7 % (37.0-47.0); Hemoglobin 12.1 g/dl (12.0-16.0); Mean Corpuscular Hemoglobin 31.6 pg (25.0-34.0); Mean Corpuscular Hgb Conc 33.9 g/dL (32.0-36.0); Mean Corpuscular Volume 93.2 fL (80.0-100.0); Mean Platelet Volume 10.8 fL (9.4-12.4); Platelet Count 181 K/uL (130-400); RDW Coefficient of Variation 12.4 % (11.5-14.5); RDW Standard Deviation 42.4 fL (36.4-46.3); Red Blood Count 3.83 M/uL (4.20-5.40)
[2024-04-02 08:07] LABS: Albumin Globulin Ratio 1.2 (0.9-2); Albumin Level 3.6 gm/dl (3.4-5.0); BUN Creatinine Ratio 23.1 (10-20); Bilirubin Direct 0.1 mg/dl (0-0.2); Bilirubin,Total 0.5 mg/dl (0.2-1.0); Calcium 8.7 mg/dl (8.6-10.3); Creatinine Clr Calc Pharmacy 152.1 ml/min; Globulin 3.1 gm/dl (2.5-4.0); Magnesium 1.6 mg/dl (1.7-2.4); Potassium 3.8 mmol/L (3.5-5.1); Total Protein 6.7 gm/dl (6.0-8.3)
[2024-04-02 08:16] LABS: INR 0.9 (0.9-1.1); Prothrombin Time 10.3 Seconds (9.0-12.0)
[2024-04-02] MEDS: VITAMIN B COMPLEX TAB PO SCH (08:32)
--- NOTE | 2024-04-02 09:31 | Gastroenterology Progress Note ---
Date of Service April 02, 2024 Assessment & Plan (1) Abnormal LFTs: Plan Patient still with elevated transaminases, but only slightly improved from yesterday. Reviewed with Dr. Anthony. - start solumedrol 20mg IV q 8 hours. - continue to follow LFTs to trend. Admission and Anticipated Discharge Date Admission Date: March 30, 2024 Supervising Physician Co-Signing Physician Notes I personally saw and examined the patient. I have reviewed the chart and agree with the documentation provided by the HAND DECORATOR including discussion about the assessment, treatment and plan. She has not been taking her azathioprine and this is for maintaining autoimmune hepatitis in remission. Her LFTs have gone up after the fact and by now sertraline is mostly out of her system. This is autoimmune hepatitis and we will start a steroid pulse. We can restart the mercaptopurine at its original dose. Await IgG. Supportive care as you are doing. Subjective Patient denies any nausea, vomiting, abdominal pain. Spoke with nursing, no new GI issues at this time. LFTs are still elevated but slightly lower this morning. 04/02/24 AST 741, ALT 148, ALK 115, t bili 0.5, d bili 0.1 Review of Systems Review of Systems: All systems reviewed & are unremarkable except as noted in HPI & below Physical Exam Constitutional: WD/WN, vitals as above Respiratory: normal respiratory effort, lungs clear to auscultation Cardiovascular: Rate/Rhythm: regular rate and regular rhythm Gastrointestinal (Abdomen): normal bowel sounds, soft, nontender, no hepatosplenomegaly Psychiatric: Orientation: alert and oriented x 3 Results & Data Results & Data Vital Signs (Past 12 Hours) Vital Signs Temp Pulse Pulse Pulse Resp BP Pulse Ox 04/02/24 07:31 98.4 F 92 H 16 96/61 L 95 04/02/24 03:00 98.6 F 104 H 16 101/68 95 04/01/24 23:31 98.8 F 97 H 18 102/65 94 04/01/24 22:50 98 H 04/01/24 22:31 O2 Del Method 04/02/24 07:31 Room Air 04/02/24 03:00 Room Air 04/01/24 23:31 Room Air 04/01/24 22:50 04/01/24 22:31 Room Air Coding Level of Care Code 23533 SUB INP/OBS CARE 235MIN Diagnoses Abnormal LFTs R79.89
[2024-04-02 09:52] LABS: Hep B Surface Ag with confirm Negative (Negative)
[2024-04-02 09:58] LABS: Hep C Ab Rflx HepCQuant RNA Negative (Negative)
--- NOTE | 2024-04-02 10:01 | Communication Note ---
Date of Service: April 02, 2024 GI requesting psychiatry clearance for steroid use. Given rising LFTS in context of autoimmune hepatitis and medication non-adherence. Benefits outweigh risk for steroid treatment and we will continue to follow patient to monitor and manage symptoms.
[2024-04-02 10:18] LABS: Albumin Level 3.6 gm/dl (3.4-5.0); Bilirubin Direct 0.1 mg/dl (0-0.2); Bilirubin,Total 0.5 mg/dl (0.2-1.0); Total Protein 6.8 gm/dl (6.0-8.3)
--- NOTE | 2024-04-02 11:26 | Hospitalist Progress Note ---
Date of Service April 02, 2024 Assessment & Plan (1) Intentional drug overdose: (2) Overdose of sertraline: (3) Suicidal overdose: (4) Autoimmune liver disease: (5) Crohn's disease: (6) Intentional SSRI (selective serotonin reuptake inhibitor) overdose: (7) Suicide attempt: (8) Depression: (9) Abnormal LFTs: Plan 28-year-old female with past medical history of depression with prior suicide attempt in July 2023 on sertraline, autoimmune liver disease on azathioprine, Crohn's disease on infliximab infusions every 6 weeks follows up at IBD clinic with [facility] was brought in by EMS to ED after being referred by police with a 302 petition from the patient's boyfriend for suicide attempt with sertraline overdose. #Suicide attempt #Intentional drug overdose with sertraline #Depression Continue telemetry monitoring Poison control department has recommended QTc monitoring and also recommended as needed Ativan IV bolus for persistent sinus tachycardia above 110 bpm Continue one-to-one observation Psychiatry saw the patient and patient will need inpatient psychiatry care once she is medically cleared Ativan as needed #Autoimmune liver disease #Mild transaminitis #Crohn's disease Patient follows up with GI at [facility] and IBD center at [facility] Patient is on 6 weekly infusions of infliximab: Last dose was on 03/28/2024 AST is abruptly risen to 757 GI consult Patient not very compliant with azathioprine since October 2023 Await GI consult and recommendations GI started solu-medrol today as LFTs still elevated CODE STATUS: Full code DVT prophylaxis: Bilateral SCDs Care plan discussed with patient, nursing staff Admission and Anticipated Discharge Date Admission Date: March 30, 2024 Subjective Pt still having hallucinations at times. She states she hears voices in her mind and sees things appearing that she knows are not real. Review of Systems Review of Systems: All 12 point systems having reviewed and are either negative or listed in HPI Physical Exam Physical Exam: GENERAL APPEARANCE NAD, activity normal for age, well developed/ well nourished, no cyanosis, pallor, or diaphoresis. EYES lids/conjunctiva normal. EARS/NOSE/THROAT Mucous membranes moist, nares normal, lips/teeth normal uvula midline without oral pharyngeal erythema, exudate or swelling TMs normal bilaterally. No lymphangitis/lymphedema. HEAD/NECK normocephalic atraumatic, no facial trauma, neck is supple. RESPIRATORY respiratory effort normal, speaks in full sentences, no tripod position, no accessory muscle use. Lungs clear to auscultation without rhonchi, wheezes, rales CARDIAC Regular rate and rhythm, no edema. ABDOMINAL Soft, ND/NT. No evidence of fluid wave. No pulsatile masses on exam, rebound tenderness, Rosales sign or pain over Mcburney's point. MUSCLES/EXTREMITIES No abnormal range of motion, no swelling. SKIN Warm, pink and dry. No rashes, dermatoses, petechiae or lesions. NEUROLOGICAL Speech is clear and appropriate. Normal level of consciousness. Gait and coordination are normal. 5/5 strength in all extremities. PSYCH Normal mood and affect. Judgement/competence is appropriate Results & Data Results & Data Vital Signs (Past 12 Hours) Vital Signs Temp Pulse Pulse Pulse Resp BP BP 04/02/24 10:29 36.7 C 96 H 18 113/73 04/02/24 08:31 98 H 04/02/24 07:31 36.9 C 92 H 16 96/61 L 04/02/24 03:00 37.0 C 104 H 16 101/68 04/01/24 23:31 37.1 C 97 H 18 102/65 Pulse Ox O2 Del Method 04/02/24 10:29 97 Room Air 04/02/24 08:31 04/02/24 07:31 95 Room Air 04/02/24 03:00 95 Room Air 04/01/24 23:31 94 Room Air PG Care Time/CCT Total # of Minutes Spent Total Time Spent with Patient: Total time spent is greater than 50% in coordination of care (as documented) at patient's floor/unit and/or counseling patient: Coding Level of Care Code 27384 SUB INP/OBS CARE 235MIN Diagnoses Intentional drug overdose T50.902A Encounter type: initial encounter Overdose of sertraline T43.221A Suicidal overdose T50.902A Autoimmune liver disease K76.89 Crohn's disease K50.90 Intentional SSRI (selective serotonin reuptake inhibitor) overdose T43.222A Suicide attempt T14.91XA Depression F32.A Depression Type: unspecified Abnormal LFTs R79.89 (1) Intentional drug overdose Encounter type: initial encounter Qualified Code(s): T50.902A - Poisoning by unspecified drugs, medicaments and biological substances, intentional self-harm, initial encounter (8) Depression Depression Type: unspecified Qualified Code(s): F32.A - Depression, unspecified
[2024-04-02] MEDS: hydrOXYzine HCl 25 MG TAB PO PRN (12:26)
[2024-04-02] MEDS: methylPREDNISolone 20 MG in SYRINGE 0 ML IV SCH (13:40)
[2024-04-02] MEDS ORDERED: methylPREDNISolone 125 MG/2 ML VIAL IV SCH (14:00)
--- NOTE | 2024-04-02 21:34 | Electrocardiogram Report ---
Test Reason : Blood Pressure : */* mmHG Vent. Rate : 96 BPM Atrial Rate : 96 BPM P-R Int : 130 ms QRS Dur : 94 ms QT Int : 378 ms P-R-T Axes : 66 68 57 degrees QTcB Int : 477 ms Normal sinus rhythm Normal ECG When compared with ECG of 01-Apr-2024 06:18, Incomplete right bundle branch block is no longer Present Confirmed by Sterling Nails ([id number]) on 04/02/2024 9:34:08 PM Referred By: REFERRED SELF Confirmed By: Sterling Nails
[2024-04-02 23:03] LABS: 7-Aminoclonaz, Confirm NEGATIVE ng/mL (<25); Hydro-Alp Ur, GC/MS NEGATIVE ng/mL (<25); Hydroxyethylflurazepam, Conf NEGATIVE ng/mL (<50); Hydroxymidazolam Ur, GC/MS NEGATIVE ng/mL (<50); Hydroxytriazolam NEGATIVE ng/mL (<50); Lorazepam, Ur GC/MS NEGATIVE ng/mL (<50); Nordiazepam, Confirm NEGATIVE ng/mL (<50); Oxazepam Ur, GC/MS NEGATIVE ng/mL (<50); Temazepam, Confirm NEGATIVE ng/mL (<50)
[2024-04-03 07:25] LABS: Albumin Level 3.6 gm/dl (3.4-5.0); Bilirubin,Total 0.3 mg/dl (0.2-1.0); Total Protein 6.7 gm/dl (6.0-8.3)
--- NOTE | 2024-04-03 09:44 | Gastroenterology Progress Note ---
Date of Service April 03, 2024 Assessment & Plan (1) Abnormal LFTs: Plan: LFTs have started trending down since starting solumedrol. - continue with solumedrol 20mg IV q 8 hours. - continue to trend LFTs. - she will need to follow up with her outpatient GI at [place] upon discharge. Admission and Anticipated Discharge Date Admission Date: March 30, 2024 Supervising Physician Co-Signing Physician Notes I personally saw and examined the patient. I have reviewed the chart and agree with the documentation provided by the MANAGER CLIENT SUPPORT including discussion about the assessment, treatment and plan. Her LFTs are improving and she is tolerating the steroids. Can transition hopefully to p.o. prednisone tomorrow and continue the azathioprine. She will need follow-up with GI outpatient for autoimmune hepatitis and Crohn's disease. Subjective Since starting steroids, her LFTs are now trending down. she offers no GI concerns currently. 04/03/24 t bili 0.3, d bili 0.0, ast 431, alt 139, alk 113. Review of Systems Review of Systems: All systems reviewed & are unremarkable except as noted in HPI & below Physical Exam Constitutional: WD/WN, vitals as above Respiratory: normal respiratory effort, lungs clear to auscultation Cardiovascular: Rate/Rhythm: regular rate and regular rhythm Gastrointestinal (Abdomen): normal bowel sounds, soft, nontender, no hepatosplenomegaly Psychiatric: Orientation: alert and oriented x 3 Results & Data Results & Data Vital Signs (Past 12 Hours) Vital Signs Temp Pulse Pulse Resp BP Pulse Ox O2 Del Method 04/03/24 07:34 99.9 F H 96 H 20 106/68 97 Room Air 04/03/24 07:00 67 04/03/24 00:00 74 Coding Level of Care Code 76670 SUB INP/OBS CARE 1/25MIN Diagnoses Abnormal LFTs R79.89
[2024-04-03 10:22] LABS: Hepatitis A Antibody IgM NON-REACTIVE (NON-REACTIVE); Hepatitis B Core Antibody IgM NON-REACTIVE (NON-REACTIVE)
--- NOTE | 2024-04-03 10:27 | Hospitalist Progress Note ---
Date of Service April 03, 2024 Assessment & Plan (1) Intentional drug overdose: Plan: -Psychiatry saw the patient and patient will need inpatient psychiatry care once she is medically cleared Ativan as needed (2) Overdose of sertraline: Plan: -poison control department has recommended QTc monitoring and also recommended as needed Ativan IV bolus for persistent sinus tachycardia above 110 bpm- (3) Suicidal overdose: Plan: -on 1:1 observation (4) Autoimmune liver disease: Plan: -GI consult appreciated -LFTs trending downward since starting solu-medrol -con't to trend (5) Crohn's disease: Plan: -pt will need out patient follow up with GI at [place] Plan CODE STATUS: Full code DVT prophylaxis: Bilateral SCDs Will need transfer to inpatient psych once medically cleared. Care plan discussed with patient, nursing staff Admission and Anticipated Discharge Date Admission Date: March 30, 2024 Subjective Pt states she is getting less visual hallucinations, but still is hearing voices. Review of Systems Review of Systems: All 12 point systems having reviewed and are either negative or listed in HPI Physical Exam Physical Exam: GENERAL APPEARANCE NAD, activity normal for age, well developed/ well nourished, no cyanosis, pallor, or diaphoresis. EYES lids/conjunctiva normal. EARS/NOSE/THROAT Mucous membranes moist, nares normal, lips/teeth normal uvula midline without oral pharyngeal erythema, exudate or swelling TMs normal bilaterally. No lymphangitis/lymphedema. HEAD/NECK normocephalic atraumatic, no facial trauma, neck is supple. RESPIRATORY respiratory effort normal, speaks in full sentences, no tripod position, no accessory muscle use. Lungs clear to auscultation without rhonchi, wheezes, rales CARDIAC Regular rate and rhythm, no edema. ABDOMINAL Soft, ND/NT. No evidence of fluid wave. No pulsatile masses on exam, rebound tenderness, Rosales sign or pain over Mcburney's point. MUSCLES/EXTREMITIES No abnormal range of motion, no swelling. SKIN Warm, pink and dry. No rashes, dermatoses, petechiae or lesions. NEUROLOGICAL Speech is clear and appropriate. Normal level of consciousness. Gait and coordination are normal. 5/5 strength in all extremities. PSYCH Normal mood and affect. Judgement/competence is appropriate Results & Data Results & Data Vital Signs (Past 12 Hours) Vital Signs Temp Pulse Pulse Resp BP Pulse Ox O2 Del Method 04/03/24 07:34 37.7 C H 96 H 20 106/68 97 Room Air 04/03/24 07:00 67 04/03/24 00:00 74 PG Care Time/CCT Total # of Minutes Spent Total Time Spent with Patient: Total time spent is greater than 50% in coordination of care (as documented) at patient's floor/unit and/or counseling patient: Coding Level of Care Code 01590 SUB INP/OBS CARE 2/35MIN Diagnoses Intentional drug overdose T50.902A Encounter type: initial encounter Overdose of sertraline T43.221A Suicidal overdose T50.902A Autoimmune liver disease K76.89 Crohn's disease K50.90 (1) Intentional drug overdose Encounter type: initial encounter Qualified Code(s): T50.902A - Poisoning by unspecified drugs, medicaments and biological substances, intentional self-harm, initial encounter
[2024-04-03] MEDS: diphenhydrAMINE Capsule 25 MG CAP PO PRN (16:00)
[2024-04-04 09:25] LABS: Albumin Level 3.5 gm/dl (3.4-5.0); Bilirubin,Total 0.3 mg/dl (0.2-1.0); Total Protein 6.6 gm/dl (6.0-8.3)
--- NOTE | 2024-04-04 09:47 | Gastroenterology Progress Note ---
Date of Service April 04, 2024 Assessment & Plan (1) Abnormal LFTs: Plan: 28 year old female w/ history of depression, autoimmune liver disease on azathioprine, Crohn's disease on infliximab following w/ IBD clinic with [facility] admitted w/ sertraline overdose - GI following for elevated LFTs started on steroid therapy. - Continue Azathioprine - Will discuss initiation of oral Prednisone w/ taper w/ attending - Continue to trend LFTs - OP follow up with [facility] I spent a total of 40 minutes on the date of service in review of patient's record, and previously obtained information in person and appropriate medical visit, discussion and education of plan, with patient and/or caregiver, placing orders for tests/referral/procedures as medically necessary and documentation of pertinent clinical information in patient's medical records for their visit today. Admission and Anticipated Discharge Date Admission Date: March 30, 2024 Supervising Physician Co-Signing Physician Notes I personally saw and examined the patient. I have reviewed the chart and agree with the documentation provided by the DIRECTOR OF PHYSICAL THERAPY including discussion about the assessment, treatment and plan. Briefly, LFTs have markedly come down and are starting to normalize. She should continue prednisone with a prolonged taper with her azathioprine. She should be on prednisone 40 mg p.o. every morning for 7 days, 30 mg p.o. every morning for 10 days, 25 mg p.o. every morning for 10 days, 20 mg p.o. every morning for 10 days, 15 mg p.o. every morning x 10 days, 10 mg p.o. every morning. At this point, we should get LFTs done and based on that can continue the taper. She should follow-up with her outpatient GI in [place]. GI will sign off please call us with any questions Subjective Pt was seen and evaluated, chart reviewed. No concerns this AM. Denies abd pain. No black or bloody stools. Does endorse some constipation. No fever, chills, CP, SOB. Tbili 0.5 AST 842 --> 197 ALT 149 --> 115 ALKP 166 --> 105 Review of Systems Review of Systems: All other findings negative except as noted in HPI. Physical Exam Constitutional: WD/WN, vitals as above Respiratory: normal respiratory effort, lungs clear to auscultation Cardiovascular: Rate/Rhythm: regular rate and regular rhythm Gastrointestinal (Abdomen): normal bowel sounds, soft, nontender, no hepat osplenomegaly Skin: no rashes, warm and dry Results & Data Results & Data Vital Signs (Past 12 Hours) Vital Signs Temp Pulse Pulse Pulse Resp BP Pulse Ox 04/04/24 08:45 04/04/24 07:28 36.7 C 69 17 111/71 95 04/04/24 07:09 73 04/04/24 03:59 36.6 C 66 16 96/57 L 93 04/04/24 00:00 83 04/03/24 23:18 36.7 C 76 14 107/71 97 O2 Del Method 04/04/24 08:45 Room Air 04/04/24 07:28 Room Air 04/04/24 07:09 04/04/24 03:59 Room Air 04/04/24 00:00 04/03/24 23:18 Room Air Laboratory Results 04/04/24 04/02/24 Range/Units 08:54 06:44 Total Bilirubin 0.3 (0.2-1.0) mg/dl Direct Bilirubin 0.0 (0-0.2) mg/dl AST 197 H (13-39) U/L ALT 115 H (7-52) U/L Alkaline Phosphatase 105 H (34-104) U/L Total Protein 6.6 (6.0-8.3) gm/dl Albumin 3.5 (3.4-5.0) gm/dl Hepatitis A IgM Ab NON-REACTIVE (NON-REACTIVE) Hep B Core IgM Ab NON-REACTIVE (NON-REACTIVE) PG Care Time/CCT Total # of Minutes Spent Total Time Spent with Patient: Total time spent is greater than 50% in coordination of care (as documented) at patient's floor/unit and/or counseling patient: Coding Level of Care Code 69613 SUB INP/OBS CARE 2/35MIN Diagnoses Abnormal LFTs R79.89
--- NOTE | 2024-04-04 10:01 | Hospitalist Progress Note ---
Date of Service April 04, 2024 Assessment & Plan (1) Intentional drug overdose: Plan: -Psychiatry saw the patient and patient will need inpatient psychiatry care once she is medically cleared Ativan as needed (2) Overdose of sertraline: Plan: -poison control department has recommended QTc monitoring and also recommended as needed Ativan IV bolus for persistent sinus tachycardia above 110 bpm- (3) Suicidal overdose: Plan: -on 1:1 observation (4) Autoimmune liver disease: Plan: -GI consult appreciated -LFTs trending downward since starting solu-medrol -con't to trend -AST 698>197 -ALT 146>105 -Alkpos 117.195 -GI planning to change steroids to prednisone (5) Crohn's disease: Plan: -con't with azathioprine -pt will need out patient follow up with GI at [place] Plan CODE STATUS: Full code DVT prophylaxis: Bilateral SCDs Will need transfer to inpatient psych once medically cleared. Care plan discussed with patient, nursing staff Admission and Anticipated Discharge Date Admission Date: March 30, 2024 Subjective No events overnight, pt states she slept well. Review of Systems Review of Systems: All 12 point systems having reviewed and are either negative or listed in HPI Physical Exam Physical Exam: GENERAL APPEARANCE NAD, activity normal for age, well developed/ well nourished, no cyanosis, pallor, or diaphoresis. EYES lids/conjunctiva normal. EARS/NOSE/THROAT Mucous membranes moist, nares normal, lips/teeth normal uvula midline without oral pharyngeal erythema, exudate or swelling TMs normal bilaterally. No lymphangitis/lymphedema. HEAD/NECK normocephalic atraumatic, no facial trauma, neck is supple. RESPIRATORY respiratory effort normal, speaks in full sentences, no tripod position, no accessory muscle use. Lungs clear to auscultation without rhonchi, wheezes, rales CARDIAC Regular rate and rhythm, no edema. ABDOMINAL Soft, ND/NT. No evidence of fluid wave. No pulsatile masses on exam, rebound tenderness, Rosales sign or pain over Mcburney's point. MUSCLES/EXTREMITIES No abnormal range of motion, no swelling. SKIN Warm, pink and dry. No rashes, dermatoses, petechiae or lesions. NEUROLOGICAL Speech is clear and appropriate. Normal level of consciousness. Gait and coordination are normal. 5/5 strength in all extremities. PSYCH Normal mood and affect. Judgement/competence is appropriate Results & Data Results & Data Vital Signs (Past 12 Hours) Vital Signs Temp Pulse Pulse Pulse Resp BP Pulse Ox 04/04/24 08:45 04/04/24 07:28 36.7 C 69 17 111/71 95 04/04/24 07:09 73 04/04/24 03:59 36.6 C 66 16 96/57 L 93 04/04/24 00:00 83 04/03/24 23:18 36.7 C 76 14 107/71 97 O2 Del Method 04/04/24 08:45 Room Air 04/04/24 07:28 Room Air 04/04/24 07:09 04/04/24 03:59 Room Air 04/04/24 00:00 04/03/24 23:18 Room Air PG Care Time/CCT Total # of Minutes Spent Total Time Spent with Patient: Total time spent is greater than 50% in coordination of care (as documented) at patient's floor/unit and/or counseling patient: Coding Level of Care Code 82130 SUB INP/OBS CARE 2/35MIN Diagnoses Intentional drug overdose T50.902A Encounter type: initial encounter Overdose of sertraline T43.221A Suicidal overdose T50.902A Autoimmune liver disease K76.89 Crohn's disease K50.90 (1) Intentional drug overdose Encounter type: initial encounter Qualified Code(s): T50.902A - Poisoning by unspecified drugs, medicaments and biological substances, intentional self-harm, initial encounter
[2024-04-05 08:40] LABS: Albumin Level 3.6 gm/dl (3.4-5.0); Bilirubin,Total 0.4 mg/dl (0.2-1.0); Total Protein 6.8 gm/dl (6.0-8.3)
--- NOTE | 2024-04-05 10:46 | Hospitalist Progress Note ---
Date of Service April 05, 2024 Assessment & Plan (1) Intentional drug overdose: Plan: -Psychiatry saw the patient and patient will need inpatient psychiatry -Pt is medically cleared for transfer to inpatient psychiatry at this time -Ativan as needed (2) Overdose of sertraline: Plan: -poison control department has recommended QTc monitoring and also recommended as needed Ativan IV bolus for persistent sinus tachycardia above 110 bpm- (3) Suicidal overdose: Plan: -on 1:1 observation (4) Autoimmune liver disease: Plan: -GI consult appreciated -LFTs trending downward since starting solu-medrol -con't to trend -AST 698>111 -ALT 146>102 -Alkpos 117>104 -GI planning to change steroids to prednisone (5) Crohn's disease: Plan: -con't with azathioprine -pt will need out patient follow up with GI at [place] Plan CODE STATUS: Full code DVT prophylaxis: Bilateral SCDs Pt is medically cleared to transfer to inpatient psych Care plan discussed with patient, nursing staff Admission and Anticipated Discharge Date Admission Date: March 30, 2024 Subjective Pt feeling much better today. No hallucinations overnight. Review of Systems Review of Systems: All 12 point systems having reviewed and are either negative or listed in HPI Physical Exam Physical Exam: GENERAL APPEARANCE NAD, activity normal for age, well developed/ well nourished, no cyanosis, pallor, or diaphoresis. EYES lids/conjunctiva normal. EARS/NOSE/THROAT Mucous membranes moist, nares normal, lips/teeth normal uvula midline without oral pharyngeal erythema, exudate or swelling TMs normal bilaterally. No lymphangitis/lymphedema. HEAD/NECK normocephalic atraumatic, no facial trauma, neck is supple. RESPIRATORY respiratory effort normal, speaks in full sentences, no tripod position, no accessory muscle use. Lungs clear to auscultation without rhonchi, wheezes, rales CARDIAC Regular rate and rhythm, no edema. ABDOMINAL Soft, ND/NT. No evidence of fluid wave. No pulsatile masses on exam, rebound tenderness, Rosales sign or pain over Mcburney's point. MUSCLES/EXTREMITIES No abnormal range of motion, no swelling. SKIN Warm, pink and dry. No rashes, dermatoses, petechiae or lesions. NEUROLOGICAL Speech is clear and appropriate. Normal level of consciousness. Gait and coordination are normal. 5/5 strength in all extremities. PSYCH Normal mood and affect. Judgement/competence is appropriate Results & Data Results & Data Vital Signs (Past 12 Hours) Vital Signs Temp Pulse Resp BP Pulse Ox O2 Del Method 04/05/24 08:00 36.3 C L 92 H 16 97/59 L 96 Room Air 04/05/24 04:12 36.5 C 76 16 98/62 L 96 Room Air 04/04/24 22:51 36.8 C 83 16 107/71 97 Room Air PG Care Time/CCT Total # of Minutes Spent Total Time Spent with Patient: Total time spent is greater than 50% in coordination of care (as documented) at patient's floor/unit and/or counseling patient: Coding Level of Care Code 89350 SUB INP/OBS CARE 2/35MIN Diagnoses Intentional drug overdose T50.902A Encounter type: initial encounter Overdose of sertraline T43.221A Suicidal overdose T50.902A Autoimmune liver disease K76.89 Crohn's disease K50.90 (1) Intentional drug overdose Encounter type: initial encounter Qualified Code(s): T50.902A - Poisoning by unspecified drugs, medicaments and biological substances, intentional self-harm, initial encounter
[2024-04-05 12:37] LABS: Pregnancy Test, Urine Negative (Negative)
[2024-04-05 12:38] LABS: Appearance Urine Clear (Clear); Bacteria Urine Automated 1+ (None Seen); Bilirubin Urine Negative (Negative); Blood Urine Trace (Negative); Cast Urine Automated 0-2 /lpf (0-2); Color Urine Dark Yellow; Glucose Urine UA Negative (Negative); Ketones Urine 1+ (Negative); Leukocyte Esterase Urine Negative (Negative); Nitrite Urine Negative (Negative); Protein Urine Negative (Negative); Specific Gravity Urine 1.018 (1.000-1.030); Urobilinogen Urine Negative (Negative); WBC Urine Automated 0-5 /hpf (0-5)
--- NOTE | 2024-04-05 15:34 | Communication Note ---
Date of Service: April 05, 2024 patient medically cleared for psychiatry admission. patient offered inpatient psychiatry admission for medication management and aftercare planning. patient verbalized preference for discharge. she denies suicidal ideation, is future oriented towards spending time with family, managing psychiatric condition, and is able to contract for safety. does not meet criteria for involuntary commitment. recommend to resume home sertraline, f/u with pcp, request outpatient psychiatry referral from pcp.
--- NOTE | 2024-04-05 16:22 | Discharge Summary ---
Discharge Summary Date of Service April 05, 2024 Principal Dx & Hospital Course #1 = Principal Diagnosis (1) Intentional drug overdose: -Psychiatry saw the patient and patient will need inpatient psychiatry -Pt is medically cleared for transfer to inpatient psychiatry at this time -Ativan as needed (2) Overdose of sertraline: -poison control department has recommended QTc monitoring and also recommended as needed Ativan IV bolus for persistent sinus tachycardia above 110 bpm- (3) Suicidal overdose: -on 1:1 observation (4) Autoimmune liver disease: -GI consult appreciated -LFTs trending downward since starting solu-medrol -con't to trend -AST 698>111 -ALT 146>102 -Alkpos 117>104 -GI planning to change steroids to prednisone (5) Crohn's disease: -con't with azathioprine -pt will need out patient follow up with GI at [place] Plan CODE STATUS: Full code DVT prophylaxis: Bilateral SCDs Pt is medically cleared to transfer to inpatient psych Care plan discussed with patient, nursing staff Admission HPI Per Admitting Provider 28-year-old female with past medical history of depression with prior suicide attempt in July 2023 on sertraline, autoimmune liver disease on azathioprine, Crohn's disease on infliximab infusions every 6 weeks follows up at IBD clinic with [facility] was brought in by EMS to ED after being referred by police with a 302 petition from the patient's boyfriend for suicide attempt with sertraline overdose. Patient states she took 40 tablets of sertraline (100 mg tablets) around 2 PM. Patient states her boyfriend broke up with her today and she cannot imagine her life without him and she was feeling depressed and suicidal and does not wish to live. Patient tells me she has had a prior suicide attempt with sertraline in July 2023 where she was admitted to [facility] and situation was similar where her boyfriend broke up with her. Patient denies any headache, dizziness, lightheadedness. Feels her head is heavy from IV Ativan. She was feeling nauseous but feels better after IV Ativan. She denies any vomiting, diarrhea, abdominal pain, chest pain, shortness of breath, cough, fever, chills, urinary symptoms In ED: Patient was given 1 L of normal saline bolus, 2 doses of Ativan 1 mg IV for clonus and Zofran 4 mg IV. She had an EKG with initially showed a QTc of 453 and a repeat EKG showed a QTc of 459. ED attending Dr. Campbell spoke with poison control who advised against activated charcoal because of nausea and recommended IV benzodiazepines for clonus or any seizures and for close observation. Patient will be admitted to ICU for close observation Labs reviewed, EKG reviewed Social history: Patient denies tobacco use, alcohol use and denies any illegal or IV drug use. She used to live in [facility] and moved to [place] to live with her boyfriend almost a year ago Discharge Exam GENERAL APPEARANCE NAD, activity normal for age, well developed/ well nourished, no cyanosis, pallor, or diaphoresis. EYES lids/conjunctiva normal. EARS/NOSE/THROAT Mucous membranes moist, nares normal, lips/teeth normal uvula midline without oral pharyngeal erythema, exudat e or swelling TMs normal bilaterally. No lymphangitis/lymphedema. HEAD/NECK normocephalic atraumatic, no facial trauma, neck is supple. RESPIRATORY respiratory effort normal, speaks in full sentences, no tripod position, no accessory muscle use. Lungs clear to auscultation without rhonchi, wheezes, rales CARDIAC Regular rate and rhythm, no edema. ABDOMINAL Soft, ND/NT. No evidence of fluid wave. No pulsatile masses on exam, rebound tenderness, Rosales sign or pain over Mcburney's point. MUSCLES/EXTREMITIES No abnormal range of motion, no swelling. SKIN Warm, pink and dry. No rashes, dermatoses, petechiae or lesions. NEUROLOGICAL Speech is clear and appropriate. Normal level of consciousness. Gait and coordination are normal. 5/5 strength in all extremities. PSYCH Normal mood and affect. Judgement/competence is appropriate Discharge Plan Discharge Items Patient Disposition: Home - Self-Care Reason For Visit: INTENTIONAL OVERDOSE Discharge Diagnosis: intentional overdose Activity: Resume your previous activity Non-emergency contact: Primary Care Provider Call non-emergency contact if: you have any medication questions Follow-up/Referrals: Kandice Cody CRNP [Primary Care Provider] - Diet: Regular Addtl Attending Provider Instructions: follow up with out patient psych Pending Studies at Discharge: No Stand-Alone Forms: My [employer], Smoking Cessation Medications and DC Order Prescriptions: Continued azathioprine 50 mg tablet 100 mg PO HS Renflexis 100 mg recon soln 100 mg IV .EVERY 6 WEEKS sertraline 100 mg tablet 100 mg PO QAM sertraline 50 mg tablet 50 mg PO QAM cholecalciferol (vitamin D3) 1,250 mcg (50,000 unit) capsule 1,250 mcg PO WK Rx Instructions: saturdays Discharge Orders: Discharge Order (Routine); Ordered 04/05/24 Ordered By: Miquel Bernardo Admission Data Admit Date/Time: 03/30/24 17:39 Attending Provider: Miquel Bernardo Admit Provider: Larry Linares Primary Care Provider: Kandice Cody Other Providers: Larry Linares; Allan Arvizu; Cesia You; Asif Spivey; Talisha Feng; Nichelle Sky; Thanh Romo; Darby Bailey; Larry Anthony Hospital Stay Data Consultations 03/30/24 16:43 ED Decision to Admit Stat 03/30/24 17:52 Consult Meal Gr[employer] Routine Consult Psychiatry Routine 04/01/24 10:14 Consult Gastroenterology Routine Procedures Performed Operation Date: 04/02/24 17:00 <No data on this case meets the specified criteria> Diagnostic Imagining Performed 04/01/24 10:32 CT head/brain wo con Urgent US abdomen [US liver] Urgent Pending Results Patient Have Any Pending Studies at Discharge: No Discharge Instructions Given to Patient (Per Discharging Provider) follow up with out patient psych Total Time Total Time Spent Total Time Spent (In Minutes): 50 Coding Level of Care Code 98233 INP/OBS DISCH >30 MIN Diagnoses Intentional drug overdose T50.902A Encounter type: initial encounter Overdose of sertraline T43.221A Suicidal overdose T50.902A Autoimmune liver disease K76.89 Crohn's disease K50.90
== END 2024-04-05 17:28 | disposition home or self-care (01) | DRG 918 ==
LOC: SUATTDRO → ED 14:21 → 1E 17:39 → SUATTDRO 17:39 → 1E 19:11 → 2S 03-31 22:59